=== PATIENT | female | born 1980 | race Caucasian/White ===

== ENCOUNTER 2024-05-29 08:24 | Outpatient (OUT) | payer OTHER, SELFPAY ==
[2024-05-29 08:38] LABS: Basophils Absolute Auto 0.1 10^3/uL (0.0-0.1); Eosinophils Absolute Auto 0.2 10^3/uL (0.0-0.7); Eosinophils Percent Auto 2.6 % (0.9-7.0); Hematocrit 39.8 % (36.0-48.0); Hemoglobin 12.9 g/dL (12.0-16.0); Immature Granulocytes Abs Auto 0.01 10^3/uL (0.00-0.03); Immature Granulocytes Pct Auto 0.2 % (0.0-0.5); Lymphocytes Absolute Auto 1.8 10^3/uL (1.2-3.8); Mean Corpuscular HGB Conc 32.4 g/dL (29.9-35.2); Mean Corpuscular Hemoglobin 29.4 pg (26.7-34.0); Mean Corpuscular Volume 90.7 fL (81.0-99.0); Mean Platelet Volume 10.7 fL (9.5-13.5); Monocytes Absolute Auto 0.6 10^3/uL (0.3-0.8); Neutrophils Absolute Auto 3.4 10^3/uL (1.4-6.5); Neutrophils Percent Auto 56.2 % (43.0-75.0); Platelet Count 190 10^3/uL (150-450); Red Blood Count 4.39 10^6/uL (4.20-5.40); Red Cell Distribution Width 12.2 % (11.0-15.0); White Blood Count 6.1 10^3/uL (4.0-11.0)
--- NOTE | 2024-05-29 08:40 | XR_ITS ---
The [address] [address] Patient Name: NATACHA BENITEZ MRN: [id number] date: 1980 Sex: F Assigned Patient Location: LAB Current Patient Location: Accession/Order Number: [id number] Exam Date: 05/29/2024 08:41 Report Date: 05/31/2024 06:39 At the request of: TIMOTEO REAGAN Procedure: XR lumbar spine 6V w bending EXAMINATION: XR lumbar spine 6V w bending HISTORY: M79.2 Peripheral neuropathic pain COMPARISON: MRI L-spine 02/14/2021 FINDINGS: BONES: Mild right convex curvature lumbar spine. No fracture, spondylolisthesis, bone lesion. Mild degenerative facet arthropathy L3-L4 through L5-S1. DISC SPACES: Mild narrowing L1-L2, L2-L3, L3-L4. PARASPINOUS: Negative. No paraspinous abnormality is seen. OTHER: Negative. XR/XR lumbar spine 6V w bending IMPRESSION: 1. Mild degenerative changes of lumbar spine; slight progression is suspected when compared to prior study (allowing for differences in technique). Electronically authenticated by: CASSIA PARKS Date: 05/31/2024 06:39
[2024-05-29 09:24] LABS: Alanine Aminotransferase 28 U/L (14-59); Albumin Level 3.5 g/dL (3.4-5.0); Alkaline Phosphatase 80 U/L (46-116); Anion Gap 12.7; Aspartate Amino Transferase 23 U/L (15-37); BUN Creatinine Ratio 13.5; Bilirubin Total 0.5 mg/dL (0.2-1.0); Calcium 8.6 mg/dL (8.5-10.1); Carbon Dioxide 29.6 mmol/L (21.0-32.0); Chloride 104 mmol/L (98-107); Chol HDL Ratio 2.2; Cholesterol 142 mg/dL (<=200); Estimated GFR (African America >60 (>=60 mL/min/1.73m^2); Estimated GFR (Non-African Ame 54 (>=60 mL/min/1.73m^2); Globulin 3.4 g/dL; Glucose 83 mg/dL (74-106); HDL Cholesterol 65 mg/dL (40-60); Potassium 4.3 mmol/L (3.5-5.1); Sodium 142 mmol/L (136-145); Total Protein 6.9 g/dL (6.4-8.2); Triglycerides 55 mg/dL (<=150)
== END 2024-05-29 08:25 | disposition home or self-care (01) ==
LOC: LAB 08:24
PROVIDERS: PCP Nurse Practitioner Family; Visit Provider Nurse Practitioner Family
DX: M79.2 Neuralgia and neuritis, unspecified (principal); I10 Essential (primary) hypertension; M51.369 Other intervertebral disc degeneration, lumbar region without mention of lumbar back pain or lower extremity pain
CPT/HCPCS: 36415; 72114; 80053; 80061; 85025

== ENCOUNTER 2024-06-17 13:45 | Outpatient (OUT) | payer OTHER, SELFPAY ==
--- OUTSIDE RECORDS SUMMARY | 2024-06-17 14:03 | XMS_ITS | CCD ---
Author Organization [facility] Team Providers Care High Climber Name Role Phone ESTER SANDERS Unavailable Unavailable KATERINA ANAND [facility], PCP Unavailabl e Unavailable TERESA, TARAH Admitting Unavailable TERESA, TARAH Attending Unavailable TERESA, TARAH Primary Care Unavailable TERESA, TARAH Consulting Unavailable TERESA, TARAH Admitting Unavailable TERESA, TARAH Attending Unavailable TERESA, TARAH Primary Care Unavailable TERESA, TARAH Consulting Unavailable TERESA, TARAH Admitting Unavailable TERESA, TARAH Attending Unavailable TERESA, TARAH Primary Care Unavailable KASEY, DR WILLIAM Chand Consulting Unavailable TERESA, TARAH Consulting Unavailable ZUMBAR, MIKI Admitting Unavailable ZUMBAR, MIKI Attending Unavailable TERESA, TARAH Primary Care Unavailable [facility] Primary Care Unavailbereket NELSON, DR VERDUZCO Admitting Unavailable OMAR, DR VERDUZCO Attending Unavailable ANDRIA BATRES Consulting Unavailable Jonah Son Consulting Unavailable GARCIA, EARNESTINE Admitting Unavailable GARCIA, EARNESTINE Attending Unavailable TERESA, TARAH Primary Care Unavailable KASEY, DR WILLIAM Chand Consulting Unavailable GARCIA, EARNESTINE Consulting Unavailable LASHA, Bryce Attending Unavailable Corrine Dunn Attending Unavailable JORGEAMBryce Referring Unavailable SALAM, Bryce Attending Unavailable SALAMBryce Attending Unavailable JORGEAMBryce Admitting Unavailable Christ Garcia Attending Unavailable Christ Garcia Primary Care Unavailable Christ Garcia Admitting Unavailable Christ Garcia Attending Unavailable Christ Garcia Admitting Unavailable JULIANNA Garcia Primary Care Provider JULIANNA Garcia Attending Provider [phone] GAMALIEL Rouse Attending Provider Unavailable Unavailable Unavailable Allergies Allergy Classification Reported Allergen(s) Allergy Type Date of Onset Reaction(s) Facility (3 sources) NSAIDS (Non-Steroidal Anti-Inflamma; Translations: [NSAIDS (Non-Steroidal Anti-Inflamma] Propensity to adverse reactions 08-20-19 18 Gastrointestinal Upset [facility] Repository (1 source) NSAIDs Drug allergy (disorder) [facility] Repository (1 source) Ibuprofen; Translations: [ibuprofen] Drug Allergy [facility] Repository Medications Current Medications Medication Drug Class(es) Dates Sig (Normalized) Sig (Original) amLODIPine 5 mg oral tablet (2 sources) Dihydropyridine Calcium Channel Hao Start: 03-28-2017 take 1 tablet by mouth once daily Amlodipine Active 1 TAB PO Daily March 28, 2017 2:40pm carvedilol 25 mg oral tablet (2 sources) alpha-Adrenergic Hao, beta-Adrenergic Hao Start: 01-20-2018 take 25 mg by mouth twice daily Carvedilol Active 25 MG PO Twice daily January 20, 2018 1:43pm losartan potassium 25 mg oral tablet (2 sources) Angiotensin 2 Receptor Hao Start: 06-08-2018 take 25 mg by mouth twice daily Losartan Active 25 MG PO Twice daily June 08, 2018 3:13am 24 hr oxybutynin chloride 15 mg extended release oral tablet (2 sources) Cholinergic Muscarinic Antagonist Start: 03-10-2017 take 1 tablet by mouth once daily Oxybutynin Chloride Active 1 TAB PO Daily March 10, 2017 3:10pm SUMAtriptan 100 mg oral tablet (2 sources) Serotonin-1b and Serotonin-1d Receptor Agonist Start: 01-20-2018 Sumatriptan Succinate (Imitrex) 100 mg Tablet Active 100 MG PO As Directed January 20, 2018 1:43pm Completed/Discontinued Medications Medication Drug Class(es) Dates Sig (Normalized) Sig (Original) acetaminophen 325 mg / HYDROcodone bitartrate 5 mg oral tablet (2 sources) Opioid Agonist Start: 06-08-2018 End: 06-11-2018 take 1 tablet by mouth every six hours Hydrocodone-Acetam inophen (Acton) 5-325 mg tablet Discontinued 1 TAB PO Q6H 10 3 June 08, 2018 June 11, 2018 1:02am acetaminophen 325 mg / oxyCODONE hydrochloride 5 mg oral tablet (2 sources) Opioid Agonist Start: 04-04-2017 End: 01-20-2018 take 1 tablet by mouth every four hours Oxycodone-Acetamin ophen (Percocet) 5-325 mg tablet Discontinued 1 TAB PO Q4H 30 April 04, 2017 January 20, 2018 2:45pm ferrous sulfate 325 mg oral tablet (2 sources) Start: 03-10-2017 End: 01-20-2018 take 1 tablet by mouth once daily Ferrous Sulfate Discontinued 1 TAB PO Daily March 10, 2017 3:10pm January 20, 2018 1:42pm gabapentin 300 mg oral capsule (2 sources) Anti-epileptic Agent Start: 03-10-2017 End: 01-20-2018 take 3 capsules by mouth at bedtime Gabapentin Discontinued 3 CAP PO Bedtime March 10, 2017 3:08pm January 20, 2018 1:45pm griseofulvin 500 mg oral tablet (2 sources) Start: 03-10-2017 End: 03-28-2017 take 1 tablet by mouth once daily Griseofulvin Microsize Discontinued 1 TAB PO Daily March 10, 2017 3:09pm March 28, 2017 2:40pm ketoconazole 20 mg/ml topical cream (2 sources) Azole Antifungal Start: 03-28-2017 End: 01-20-2018 Ketoconazole Discontinued 1 APPLIC TOPICAL As Directed March 28, 2017 2:34pm January 20, 2018 1:45pm nortriptyline 10 mg oral capsule (2 sources) Tricyclic Antidepressant Start: 01-20-2018 End: 06-08-2018 take 3 tablets by mouth once daily at bedtime Nortriptyline Discontinued 3 TAB PO Daily at bedtime January 20, 2018 1:43pm June 08, 2018 3:13am valsartan 80 mg oral tablet (2 sources) Angiotensin 2 Receptor Hao Start: 01-20-2018 End: 06-08-2018 take 80 mg by mouth once daily Valsartan Discontinued 80 MG PO Daily January 20, 2018 1:43pm June 08, 2018 3:13am Problems Active Problems Problem Classification Problem Date Documented Da te Episodic/Chronic Esophageal disorders (1 source) Gastro-esophageal reflux disease without esophagitis; Translations: [GERD WITHOUT ESOPHAGITIS] Onset: 09-14-2020 Chronic Essential hypertension (2 sources) Essential (primary) hypertension; Translations: [Essential (primary) hypertension] Onset: 11-05-2017 Chronic Essential hypertension (2 sources) Essential hypertension Onset: 11-05-2017 Headache; including migraine (1 source) Migraine 03-10-2017 Chronic Other lower respiratory disease (1 source) Cough; Translations: [COUGH] Onset: 03-30-2021 Episodic Other lower respiratory disease (1 source) Other forms of dyspnea; Translations: [OTHER FORMS OF DYSPNEA] Onset: 01-02-2021 Episodic Other screening for suspected conditions (not mental disorders or infectious disease) (4 sources) Encounter for screening mammogram for malignant neoplasm of breast; Translations: [ENC SCR MAMMO MALIG NEOPLASM BREAST] Onset: 12-28-2020 Episodic Pulmonary heart disease (1 source) Personal history of pulmonary embolism; Translations: [PERSONAL HISTORY PULMONARY EMBOLISM] Onset: 01-02-2021 Episodic Residual codes; unclassified (1 source) Family history of malignant neoplasm of breast; Translations: [FAMILY HX MALIG NEOPLASM OF BREAST] Onset: 01-02-2021 Episodic Spondylosis; intervertebral disc disorders; other back problems (12 sources) Radiculopathy, lumbar region; Translations: [Radiculopathy, lumbosacral region] Onset: 09-12-2020 Episodic Unclassified (1 source) Dyspnea, unspecified / R06.00(ICD-9) Onset: 11-05-2017 Unclassified (1 source) Cardiac arrhythmia, unspecified / I49.9(ICD-9) Onset: 11-05-2017 Unclassified (1 source) Obesity, unspecified / E66.9(ICD-9) Onset: 11-05-2017 Unclassified (3 sources) CONTACT W/AND (SUSP) EXPOS COVID-19; Translations: [CONTACT W/AND (SUSP) EXPOS COVID-19] Onset: 03-30-2021 Unclassified (1 source) Encounter for screening mammogram for malignant neoplasm of breast; Translations: [Encounter for screening mammogram for malignant neoplasm of breast] Onset: 12-12-2022 Unclassified (1 source) I10 - Essential (primary) hypertension; Translations: [I10 - Essential (primary) hypertension] Onset: 12-27-2021 Past or Other Problems Problem Classification Problem Date Documented Da te Episodic/Chronic Calculus of urinary tract (1 source) Personal history of urinary calculi; Translations: [PERSONAL HISTORY OF URINARY CALCULI] Onset: 09-14-2020 Episodic Residual codes; unclassified (1 source) Acquired absence of other specified parts of digestive tract; Translations: [ACQ ABSENCE OTH PART DIGESTV TRACT] Onset: 09-14-2020 Episodic Unclassified (1 source) CONTACT W/AND (SUSP) EXPOS COVID-19; Translations: [CONTACT W/AND (SUSP) EXPOS COVID-19] Onset: 03-27-2021 Results Test Name Value Interpretation Reference Range Facility Alanine aminotransferase [En zymatic activity/volume] in Serum or PlasmaOrdered By: April Rouse on 01-24-2023 ALT [Catalytic activity/Vol] 16 U/L 7-52 [facility] Albumin [Mass/volume] in Ser um or Plasma by Bromocresol green (BCG) dye binding methoOrdered By: April Rouse on 01-24-2023 Albumin BCG dye [Mass/Vol] 4.2 g/dL 3.5-5.7 [facility] Alkaline phosphatase [Enzyma tic activity/volume] in Serum or PlasmaOrdered By: April Rouse on 01-24-2023 ALP [Catalytic activity/Vol] 72 U/L 34-104 [facility] Aspartate aminotransferase [ Enzymatic activity/volume] in Serum or PlasmaOrdered By: April Rouse on 01-24-2023 AST [Catalytic activity/Vol] 20 U/L 13-39 [facility] Basophils Auto (Bld) [#/Vol] Ordered By: April Rouse on 01-24-2023 Basophils (Bld) [#/Vol] 0.0 10*3/uL 0.0-0.2 [facility] Basophils/100 WBC Auto (Bld) Ordered By: April Rouse on 01-24-2023 Basophils/100 WBC (Bld) 0.5 % . [facility] Bilirubin.total [Mass/volume ] in Serum or PlasmaOrdered By: April Rouse on 01-24-2023 Bilirubin [Mass/Vol] 0.5 mg/dL 0.3-1.0 [facility] Calcium [Mass/volume] in Ser um or PlasmaOrdered By: April Rouse on 01-24-2023 Calcium [Mass/Vol] 8.9 mg/dL 8.6-10.3 [facility] Carbon dioxide, total [Moles /volume] in Serum or PlasmaOrdered By: April Rouse on 01-24-2023 CO2 [Moles/Vol] 30.4 mmol/L 21.0-31.0 [facility] Chloride [Moles/volume] in S gamaliel or PlasmaOrdered By: April Rouse on 01-24-2023 Chloride [Moles/Vol] 105 mmol/L 98-107 [facility] Cholesterol [Mass/volume] in Serum or PlasmaOrdered By: April Rouse on 01-24-2023 Cholesterol [Mass/Vol] 137 mg/dL 140-200 [facility] Comment on above: Chol less than 200 m g/dl low riskChol 201-239 mg/dl borderline riskChol 240 mg/dl and greater high risk Cholesterol in LDL Calc [Mas s/Vol]Ordered By: April Rouse on 01-24-2023 Cholesterol in LDL [Mass/Vol] 69 mg/dL 0-100 [facility] Comment on above: LDL ATP III CLASSIFI CATIONLDL less than 100 mg/dL OptimalLDL 100-129 mg/dL Near or above optimalLDL 130-159 mg/dL Borderline highLDL 160-189 mg/dL HighLDL greater than 189 mg/dL Very high Cholesterol in VLDL Calc [Ma ss/Vol]Ordered By: April Rouse on 01-24-2023 Cholesterol in VLDL [Mass/Vol] 21 mg/dL [facility] Creatinine [Mass/volume] in Serum or PlasmaOrdered By: April Rouse on 01-24-2023 Creatinine [Mass/Vol] 0.89 mg/dL 0.60-1.20 [facility] Eosinophils Auto (Bld) [#/Vo l]Ordered By: April Rouse on 01-24-2023 Eosinophils (Bld) [#/Vol] 0.1 10*3/uL 0.0-0.45 [facility] Eosinophils/100 WBC Auto (Bl d)Ordered By: April Rouse on 01-24-2023 Eosinophils/100 WBC (Bld) 2.2 % . [facility] Erythrocyte distribution wid th Auto (RBC) [Ratio]Ordered By: April Rouse on 01-24-2023 Erythrocyte distribution width (RBC) [Ratio] 13.1 % 11.9-15.3 [facility] Globulin Calc (S) [Mass/Vol] Ordered By: April Rouse on 01-24-2023 Globulin (S) [Mass/Vol] 2.7 g/dL [facility] Glucose [Mass/volume] in Ser um or PlasmaOrdered By: April Rouse on 01-24-2023 Glucose [Mass/Vol] 82 mg/dL 70-100 [facility] Comment on above: ADA recommended refe rence rangeRandom Glucose Reference Range is dependent on time and content of last meal. Glucose of more than 200 mg/dL in a nonstressed, ambulatory subject supports the diagnosis of Diabetes Mellitus. Hematocrit Auto (Bld) [Volum e fraction]Ordered By: April Rouse on 01-24-2023 Hematocrit (Bld) [Volume fraction] 38.0 % 34.0-46.4 [facility] Hemoglobin [Mass/volume] in BloodOrdered By: April Rouse on 01-24-2023 Hemoglobin (Bld) [Mass/Vol] 12.7 g/dL 11.8-15.4 [facility] Leukocytes [#/volume] correc kamilah for nucleated erythrocytes in Blood by Automated counOrdered By: April Rouse on 01-24-2023 WBC corrected for nucl RBC Auto (Bld) [#/Vol] 5.8 10*3/uL 3.8-11.6 [facility] Lymphocytes Auto (Bld) [#/Vo l]Ordered By: April Rouse on 01-24-2023 Lymphocytes (Bld) [#/Vol] 1.7 10*3/uL 1.00-4.8 [facility] Lymphocytes/100 WBC Auto (Bl d)Ordered By: April Rouse on 01-24-2023 Lymphocytes/100 WBC (Bld) 29.9 % . [facility] MCH Auto (RBC) [Entitic mass ]Ordered By: April Rouse on 01-24-2023 MCH (RBC) [Entitic mass] 29.3 pg 24.7-34.3 [facility] MCHC Auto (RBC) [Mass/Vol]Or dered By: April Rouse on 01-24-2023 MCHC (RBC) [Mass/Vol] 33.3 g/dL 32.0-35.0 [facility] MCV Auto (RBC) [Entitic vol] Ordered By: April Rouse on 01-24-2023 MCV (RBC) [Entitic vol] 88.0 fL 80-100 [facility] Monocytes Auto (Bld) [#/Vol] Ordered By: April Rouse on 01-24-2023 Monocytes (Bld) [#/Vol] 0.5 10*3/uL 0.0-0.8 [facility] Monocytes/100 WBC Auto (Bld) Ordered By: April Rouse on 01-24-2023 Monocytes/100 WBC (Bld) 8.0 % . [facility] Neutrophils Auto (Bld) [#/Vo l]Ordered By: April Rouse on 01-24-2023 Neutrophils (Bld) [#/Vol] 3.4 10*3/uL 1.8-7.7 [facility] Neutrophils/100 WBC Auto (Bl d)Ordered By: April Rouse on 01-24-2023 Neutrophils/100 WBC (Bld) 59.4 % . [facility] No Panel InformationOrdered By: April Rouse on 01-24-2023 Estimated GFR (CKD-EPI) > 60.0 mL/Min [facility] Creatinine Clearance (Chem N/A [facility] Nucleated erythrocytes [Pres ence] in Blood by Automated countOrdered By: April Rouse on 01-24-2023 Nucleated RBC Auto Ql (Bld) 0.2 /100{WBC} 0-0.5 [facility] Platelet adequacy [Presence] in Blood by Light microscopyOrdered By: April Rouse on 01-24-2023 Platelets LM Ql (Bld) Normal Normal [facility] Platelet mean volume Auto (B ld) [Entitic vol]Ordered By: April Rouse on 01-24-2023 Platelet mean volume (Bld) [Entitic vol] 9.8 fL 6.3-10.7 [facility] Platelet morphology finding [Identifier] in BloodOrdered By: April Rouse on 01-24-2023 Platelet morphology finding Nom (Bld) Normal Normal [facility] Platelets Auto (Bld) [#/Vol] Ordered By: April Rouse on 01-24-2023 Platelets (Bld) [#/Vol] 178 10*3/uL 150-450 [facility] Potassium [Moles/volume] in Serum or PlasmaOrdered By: April Rouse on 01-24-2023 Potassium [Moles/Vol] 4.0 mmol/L 3.5-5.1 [facility] Protein [Mass/volume] in Ser um or PlasmaOrdered By: April Rouse on 01-24-2023 Protein [Mass/Vol] 6.9 g/dL 6.4-8.9 [facility] RBC Auto (Bld) [#/Vol]Ordere d By: April Rouse on 01-24-2023 RBC (Bld) [#/Vol] 4.32 10*6/uL 3.60-5.00 [facility] RBC morphologyOrdered By: Anoop Rouse on 01-24-2023 RBC morphology finding Nom (Bld) Normal Normal [facility] Serum or plasma albumin/glob ulin mass ratioOrdered By: April Rouse on 01-24-2023 Albumin/Globulin [Mass ratio] 1.6 {ratio} [facility] Serum or plasma anion gap de terminationOrdered By: April Rouse on 01-24-2023 Anion gap [Moles/Vol] 8.6 mmol/L 6.0-15.0 [facility] Serum or plasma high density lipoprotein (HDL) cholesterol measurementOrdered By: April Rouse on 01-24-2023 Cholesterol in HDL [Mass/Vol] 47 mg/dL 23-92 [facility] Comment on above: HDL CHOL ATP-III CLA SSIFICATION Cardiovascular RiskHDL > or equal to 60 mg/dL LOWHDL < 40 mg/dL HIGH Serum or plasma total choles terol/high density lipoprotein (HDL) cholesterol mass ratOrdered By: April Rouse on 01-24-2023 Cholesterol.total/Chol esterol in HDL [Mass ratio] 2.9 {ratio} <5.0 [facility] Sodium [Moles/volume] in Ser um or PlasmaOrdered By: April Rouse on 01-24-2023 Sodium [Moles/Vol] 140 mmol/L 136-145 [facility] Triglyceride [Mass/volume] i n Serum or PlasmaOrdered By: April Rouse on 01-24-2023 Triglyceride [Mass/Vol] 106 mg/dL 0-149 [facility] Comment on above: TRIG ATP III CLASSIF ICATIONTRIG less than 150 mg/dL NormalTRIG 150-199 mg/dL Borderline highTRIG 200-500 mg/dL High TRIG greater than 500 mg/dL Very highStandard traceable to the Center for Disease Conrtrol and Prevention (CDC) test method. Urea nitrogen [Mass/volume] in Serum or PlasmaOrdered By: April Rouse on 01-24-2023 Urea nitrogen [Mass/Vol] 20 mg/dL 7-25 [facility] WBC Auto (Bld) [#/Vol]Ordere d By: April Rouse on 01-24-2023 WBC (Bld) [#/Vol] 5.8 10*3/uL 3.8-11.6 [facility] MM screening mammo BI w/CADo n 12-12-2022 MM screening mammo BI w/CAD [facility] [place] [address] [place] [address] Mammography Report Signed Patient: Natacha Benitez MR#: [id number] : 1980 Acct:[id number] Age/Sex: 42 / F ADM Date: 12/12/22 Loc: [place] Room: Type: [facility] Attending Dr: Christ LEVINE Copies to: JULIANNA Blackburn Ordering Provider: JULIANNA Blackburn Date of Service: 12/12/22 MM/MM screening mammo BI w/CAD: Breast cancer screening by mammogram CLINICAL DATA: Screening for malignancy. BILATERAL SCREENING MAMMOGRAMS - FULL FIELD DIGITAL WITH TOMOSYNTHESIS AND CAD Routine and tomosynthesis craniocaudal and mediolateral oblique views of both breasts were obtained using low-dose digital technique. Comparison is made to the prior study from December 28, 2020. This examination was reviewed with the aid of CAD. There are scattered fibroglandular densities. There are no developing masses, typically malignant calcifications or architectural distortion. There has been no significant interval change. MM/MM screening mammo BI w/CAD IMPRESSION: NO MAMMOGRAPHIC EVIDENCE OF MALIGNANCY. ROUTINE FOLLOW-UP IS RECOMMENDED IN ONE YEAR. RESULT CODE: 1 Negative DENSITY CODE: 2 (approximately 25-50% glandular) FOLLOW UP: 1YR The false-negative rate of mammography is approximately 10-percent. Management of a palpable abnormality must be based on clinical grounds. Patient was entered into a reminder system with a target due date for the next mammogram. Impression dictated by: Azalea Maciel M.D.12/12/2022 2:19 PM Dictation Location: S01 Transcribed By: ALINA 12/12/22 1419 Dictated By: Azalea Maciel MD 12/12/22 1417 Signed By: 12/12/22 1419 [facility] Pre-Certification Formon Pre-Certification Form [id number] [facility] Ambulatory Visit Summaryon 0 09-19-2022 Ambulatory Visit Summary NATACHA BENITEZ :1980 Visit Date:09/19/2022 Ambulatory Visit Instructions Your Diagnosis H. pylori infection Bloating Nausea Dry heaves Your Care Team Attending Physician - Corrine Dunn CNP Primary Care Physician - NONE, XXXX This Is Your Medications List bismuth subsalicylate (bismuth subsalicylate 262 mg Chew Tab) metronidazole (Flagyl 250 mg Tab) pantoprazole (Pantoprazole [address] Tab) tetracycline (tetracycline 500 mg Cap) Contact prescribing physician if questions or concerns Non-Formulary Medication (Misc Medication) losartan naltrexone (naltrexone 50 mg oral tablet) naltrexone (naltrexone 50 mg oral tablet) pantoprazole (Pantoprazole [address] Tab) rimegepant (Nurtec ODT 75 mg oral tablet, disintegrating) sumatriptan (Imitrex 100 mg Tab) Procedures Performed EGD - Esophagogastroduodenoscopy (08/20/2022), Introduction of tension free vaginal tape (04/08/2019), Cystourethroscopy with dilation of urethral stricture (03/23/2019), Botox injection (12/03/2018), botox injections (04/16/2018), Botox Injection (11/05/2017), Tooth extraction (08/22/2017), Botox injections (06/12/2017), Cystourethroscopy with dilation of urethral stricture (02/25/2017), Cystoscopic removal of ureteric stent (07/11/2011), Cystoscopic insertion of ureteric stent (06/14/2011), bladder lift, Dilatation and curettage, Essure., Hx of cholecystectomy......, Hysterectomy, Lithotripsy. What to do next You Need to Schedule the Following Appointments Follow Up with Corrine Dunn CNP When: Within 3 months Where: Medications What How Much When Why Instructions New bismuth subsalicylate (bismuth subsalicylate 262 mg Chew Tab) 2 Tablets Chewed 4 times a day H. pylori infection Duration: 14 Days Pickup at [facility]/pharmacy #[id number] New metronidazole (Flagyl 250 mg Tab) 1 Tablets By Mouth Every 6 hours H. pylori infection Duration: 14 Days Pickup at [facility]/pharmacy #[id number] New pantoprazole (Pantoprazole [address] Tab) 1 Tablets By Mouth 2 times a day H. pylori infection Duration: 14 Days Pickup at [facility]/pharmacy #[id number] New tetracycline (tetracycline 500 mg Cap) 1 Capsules By Mouth Every 6 hours H. pylori infection Duration: 14 Days Pickup at [facility]/pharmacy #[id number] Unchanged losartan 25 Milligram By Mouth Every day Contact prescribing physician if questions or concerns Unchanged naltrexone (naltrexone 50 mg oral tablet) Contact prescribing physician if questions or concerns Unchanged naltrexone (naltrexone 50 mg oral tablet) Contact prescribing physician if questions or concerns Unchanged Non-Formulary Medication (Misc Medication) Contact prescribing physician if questions or concerns Unchanged pantoprazole (Pantoprazole [address] Tab) TAKE 1 TABLET BY MOUTH EVERY DAY Contact prescribing physician if questions or concerns Unchanged rimegepant (Nurtec ODT 75 mg oral tablet, disintegrating) DISSOLVE 1 TABLET ON THE TONGUE ONCE DAILY Contact prescribing physician if questions or concerns Unchanged sumatriptan (Imitrex 100 mg Tab) 1 Tablets By Mouth Every day as needed for for migraine headache may repeat dose after 2 hours up to a maximum of 200 mg in 24 hours. Max 5 doses per week Contact prescribing physician if questions or concerns Pharmacy Information [facility]/pharmacy #[id number]: [address], [place] [id number] [phone] Medications and Immunizations Administered Not Given influenza virus vaccine, inactivated, Patient Refuses Allergies ibuprofen (Stomach upset) Problems Ongoing - Any problem that you are currently receiving treatment for. Bloating BMI 40.0-44.9, adult Chronic neck pain Dry heaves Globus syndrome H. pylori infection Hx of cholecystectomy Hx of migraine headaches Morbid obesity Nausea Nocturia Pulmonary embolism Seen by pain management service Straining to void Stress incontinence Stricture of female urethra Urinary urgency Urine frequency Historical - Any problem that you are no longer receiving treatment for. Dysphagia H/O: pulmonary embolus HTN (hypertension) Kidney stones Education Materials Antibiotic Medicine, Adult Antibiotic medicines are used to treat infections caused by bacteria, such as strep throat and urinary tract infection (UTI). Antibiotic medicines will not work for viral illnesses, such as colds or the flu (influenza). They work by killing the bacteria that is making you sick. Antibiotics can also have serious side effects. It is important that you take antibiotic medicines safely and only when needed. When do I need to take antibiotics? Antibiotics are medicines that treat bacterial infections. You may need antibiotics for: ? UTI. ? Strep throat. ? Meningitis. This infection affects the spinal cord and brain. ? Bacterial sinusitis. ? Serious lung infection. You may start antibiotics while your health care provider waits for test results to come back. Common tests may includ (more content not included)... Normal [facility] Consent for Procedure/Surger yon 09-19-2022 Consent for Procedure/Surgery [id number]#[id number]:[address] [facility] Gastro Video Visit - Telehea lthon 09-19-2022 Gastro Video Visit - Telehealth Chief Complaint EGD results HPI Staff Patient is a 42 year old female on a video visit to review EGD results. I spoke to patient yesterday in regards to celiac panel that has not been completed. Patient states that she will have labs drawn. History of Present Illness Patient is a 47-year-old female who presents for virtual video visit for follow-up from EGD completed 08/20/[address] Livingston. Patient was previously evaluated by Dr. Livingston 07/24/2022 for dry heaving, bloating and globus syndrome. Note also indicated patient with nausea. EGD completed 08/20/2022 revealed normal esophagus, normal gastric mucosa, normal duodenum, distal esophagus biopsies within normal limits, proximal esophagus biopsy revealed small intestinal mucosa?contamination suspected per pathology report, negative for dysplasia, duodenal biopsy within normal limits, stomach biopsy revealed marked chronic active H. pylori gastritis, negative for intestinal metaplasia. During today's visit, patient reports she will experience bloating and nausea off/on if she does not eat over the last year. She also reports having episodes of dry heaving that occurs if she does not eat over the last year. Denies black/bloody stools, vomiting, fevers/chills, diarrhea. Denies having any other GI complaints. Review of Systems ROS - Provider Constitutional: no fever, no chills. Skin: no Jaundice. ENMT: Denies dysphagia and heartburn. Respiratory: no shortness of breath. Cardiovascular: no chest pain. Gastrointestinal: yes nausea, no vomiting, no diarrhea, no GI bleeding. Physical Exam Physical exam completed via telemedicine virtual video visit: General: well developed, well groomed, well nourished, in no acute distress. Mental status: alert and oriented x 3. Unable to obtain vital signs or complete full physical examination in relation to virtual video visit and COVID-19 pandemic. Assessment/Plan This visit was conducted via two-way, real-time interactive video communications from my office using [employer] due to the restrictions of the COVID-19 pandemic. No physical exam was conducted other than those areas of the body visible to telecommunications with the patient located at [place] [phone], with no one else in attendance. If it is determined that the patient should be evaluated in the clinic, the patient will be directed to the appropriate clinic or venue. The patient or their guardian verbally consented to this visit. Total time spent preparing the chart, conducting the encounter with the patient and family, and time spent documenting, reviewing, and ordering tests was 20 minutes. 1. H. pylori infection (A04.8: Other specified bacterial intestinal infections) EGD completed 08/20/2022 revealed normal esophagus, normal gastric mucosa, normal duodenum, distal esophagus biopsies within normal limits, proximal esophagus biopsy revealed small intestinal mucosa?contamination suspected per pathology report, negative for dysplasia, duodenal biopsy within normal limits, stomach biopsy revealed marked chronic active H. pylori gastritis, negative for intestinal metaplasia. Ordered treatment for positive H. pylori with pantoprazole 40mg oral BID x 14 days, bismuth subsalicylate 524mg oral QID x 14 days, Tetracycline 500 mg oral QID x 14 days, and Metronidazole 250mg oral QID x 14 days. Educated to resume pantoprazole 40mg every other day as she is currently taking after finishing treatment for H. pylori. Educated to refrain from use of ETOH while taking Metronidazole. Educated regarding diagnosis and plan of care regarding. Ordered repeat EGD in 2 months to evaluate for eradication of H. pylori and to further evaluate for small intestinal mucosa in esophagus. Ordered: bismuth subsalicylate, 524 mg, 2 tab(s), Chewed, QID for 14 day(s), 112 tab(s), Refill(s) 0, [facility]/pharmacy #[id number], 166.5, cm, 07/24/22 10:07:00 EST, Height/Length Dosing, 99.5, kg, 07/24/22 10:07:00 EST, Weight Dosing metronidazole, 250 mg = 1 tab(s), Oral, q6hr, X 14 day(s), # 56 tab(s), Refills(s) 0, Pharmacy: [facility]/pharmacy #[id number], 166.5, cm, 07/24/22 10:07:00 EST, Height/Length Dosing, 99.5, kg, 07/24/22 10:07:00 EST, Weight Dosing pantoprazole, 40 mg = 1 tab(s), Oral, BID, X 14 day(s), # 28 tab(s), Refills(s) 0, Pharmacy: [facility]/pharmacy #[id number], 166.5, cm, 07/24/22 10:07:00 EST, Height/Length Dosing, 99.5, kg, 07/24/22 10:07:00 EST, Weight Dosing tetracycline, 500 mg = 1 cap(s), Oral, q6hr, X 14 day(s), # 56 cap(s), Refills(s) 0, Pharmacy: [facility]/pharmacy #[id number], 166.5, cm, 07/24/22 10:07:00 EST, Height/Length Dosing, 99.5, kg, 07/24/22 10:07:00 EST, Weight Dosing EGD Endoscopy (Hospital Procedure) 2. Bloating (R14.0: Abdominal distension (gaseous)) Will experience bloating and nausea off/on if she does not eat over the last year. Potentially related to H. pylori infection- see above # 1. Will follow-up after treatment for H. pylori to evaluate for improvement in symptoms. 3. Nausea (R11.0: Nausea) Will experience (more content not included)... Normal [facility] Comment on above: Result Comment: Elec tronically Signed By: Corrine Dunn CNP\.guillermo\Date and Time Signed: 09/19/22 12:33 EDT Patient Educationon 09-20-19 Patient Education Pharmacology Antibiotic Medicine, Adult Antibiotic medicines are used to treat infections caused by bacteria, such as strep throat and urinary tract infection (UTI). Antibiotic medicines will not work for viral illnesses, such as colds or the flu (influenza). They work by killing the bacteria that is making you sick. Antibiotics can also have serious side effects. It is important that you take antibiotic medicines safely and only when needed. When do I need to take antibiotics? Antibiotics are medicines that treat bacterial infections. You may need antibiotics for: ? UTI. ? Strep throat. ? Meningitis. This infection affects the spinal cord and brain. ? Bacterial sinusitis. ? Serious lung infection. You may start antibiotics while your health care provider waits for test results to come back. Common tests may include throat, urine, blood, or mucus culture. Your health care provider may change or stop the antibiotic depending on your test results. When are antibiotics not needed? You do not need antibiotics for most common illnesses. These illnesses may be caused by a virus, not a bacteria. You do not need antibiotics for: ? The common cold. ? Influenza. ? Sore throat. ? Discolored mucus. ? Bronchitis. Antibiotics are not always needed for all bacterial infections. Many of these infections clear up without antibiotic treatment. Do not ask for or take antibiotics when they are not necessary. How long should I take the antibiotic? You must take the entire prescription. Continue to take your antibiotic for as long as told by your health care provider. Do not stop taking it even if you start to feel better. If you stop taking it too soon: ? You may start to feel sick again. ? Your infection may become harder to treat. ? Complications may develop. Each course of antibiotics needs a different amount of time to work. Some antibiotic courses last only a few days. Some last about a week to 10 days. In some cases, you may need to take antibiotics for a few weeks to completely treat the infection. What if I miss a dose? Try not to miss any doses of medicine. If you miss a dose, call your health care provider or pharmacist for advice. Sometimes it is okay to take the missed dose as soon as possible. What are the risks of taking antibiotics? Most antibiotics can cause an infection called Clostridioides difficile (C. difficile or C. diff), which causes severe diarrhea. This infection happens when the antibiotics kill the healthy bacteria in your intestines. This allows C. diff to grow. The infection needs to be treated right away. Let your health care provider know if: ? You have diarrhea while taking an antibiotic. ? You have diarrhea after you stop taking an antibiotic. C. diff infection can start weeks after stopping the antibiotic. Taking an antibiotic also puts you at risk for getting a bacteria that does not respond to medicine (antibiotic-resistant infection) in the future. Antibiotics can cause bacteria to change so that if the antibiotic is taken again, the medicine is not able to kill the bacteria. These infections can be more serious and, in some cases, life-threatening. Do antibiotics affect control? control pills may not work while you are on antibiotics. If you are taking control pills, continue taking them as usual and use a second form of control, such as a condom, to avoid unwanted . Continue using the second form of control until your health care provider says you can stop. What else should I know about taking antibiotics? It is important for you to take antibiotics exactly as told. Make sure that you: ? Take the entire course of antibiotic that was prescribed. Do not stop taking your antibiotics even if your symptoms improve. ? Take the correct amount of medicine each day. ? Ask your health care provider: ? How long to wait in between doses. ? If the antibiotic should be taken with food. ? If there are any foods, drinks, or medicines that you should avoid while taking the antibiotics. ? If there are any side effects you should be aware of. ? Only use the antibiotics prescribed for you by your health care provider. Do not use antibiotics prescribed for someone else. ? Drink a large glass of water along with the antibiotics. ? Ask the pharmacist for a syringe, cup, or spoon that properly measures the antibiotics. ? Throw away any leftover medicine. Contact a health care provider if: ? Your symptoms get worse. ? You have new joint pain or muscle aches that begin after starting the antibiotic. When should I seek immediate medical care? ? You have signs of a serious allergic reaction to antibiotics. If you have signs of a severe allergic reaction, stop taking the antibiotic right away. Signs may include: ? Hives, which are raised, itchy, red bumps on the skin. ? Skin rash. ? Trouble breathi (more content not included)... Normal [facility] Operative Reporton Operative Report [id number]#[id number]:[address] [facility] Coding Summary.on 08-27-2022 Coding Summary. [id number] Gh0bWw+ PGhlYWQ+FX2BUXEaB46jlSGjmU9 LD9nWVC1KBTKXNFFDMA7WSD8fwF U4FTucN3RlhhDc PmoqhCGtBH21GSj1MDX5eCwtDFt feU3dtRGkE1r6QcAvEW69jZ45LP feSMJlLoA5QlMrznxwbNAt H1ncDqIcxTDyPcc+PHRhYmxlIHd vBJIbHPzgWVIqDpPseDauOL7tHa 9yZGVyLWNvbGxhcHNlOiBj b7xvBUZcPKofAT1abLuiD7NbqJL 2BRQje6s2Wv34iNY+HQKwMCH6yJ ejTZuuo666PlYrt7meGHU5 mESiXStgNWN4L33bt4C8ASDiZUD vZJL3lZL6cH1raJxqvmaeX2PosA QvRiB5SYO5bKUliJ8nxClb fvhmpY0gYsl+Z79AHC6KFWMJZY6 LXvs3I2PgBpkhaYX+QA01RVIsCT 16uUZrqIVrv6pscYc0XiAc KTQxCPM6iKnsMChvp6OaWNZcI82 unIXaf9I6BUDbvMhtjJBmKmAjhF M0lE7uHMceisddv8nbyukz Tufol5vkpi68zI10N24zTYnsJZB qPPT1LCNsZJPcyZjlcu9jvZ3qCp 8+AOhwl4ynj3eulQp5HyXm BKQfgzJuyUbjWNY6t9UcZj39A2S krUrwp2UtGdi4bn07nQIte0I9dX I3DRcpYYCcoE4bZEuhWdT6 FEKbLtHknH56yAHwCHqdNg9acVg cyEjlOP1oVHEjgsjiCWRnrV8pOU UfrVCpmIwvIA4kMZCrxkye f935VbDbXZZ1IJGdoVItQ9DnmH2 gCaHvQNWwDHZmM8BhbGMvMKfpR8 32AUuuGnE7PTRrxaCpE2Ez WGAqcLycBzE3m7R1Pi4To7Bkdwa wIZT2MCigGUSoNrVdUcWdKfL0C7 LbHgv5AGIyjUzfMM2oM4Iy VXEkzakrqzaodRI5CJLwKRBxlV7 3dIXuAKkuIv4ix0F3g357NECdIN RygS12Jb8atJuaPTAifFAS oU0sumebj5ydhiowOoNzOGSnZIv 8MOv6UMCavPzpYuMbSVW4IdG1II X9jLJftE7pwJglnslvpI2w Oyc+Y52jjV8fLLE5MHV3jejrHOP xnvXgVZ37WC05G4HnAqofgAMioN U+XWIoggJprLgrHY6oQdFd q1uhp5SqSKaxB6UgBOEwFAvwVcm 3PGDvBRE0wDX0hE2pAULfZCbqz1 A8gLY5M0KystHetv5nd2xg ELYuSKeqQ72cdWQws9P8KPNyfIW 3PMGtlGsaDwFkgS02Kgt+PGNvbG yoo3IkVyufq5riy4mkrEi2 YkBjTECmetUvzHzhTSU5m1GsVz6 1V91yRWbrQVMfGZOnUSGuSMQvpA cysc7ofE6sDa3+PGNvbCB3 vXO6uB9lDRGyZoL5XDeiO155ZcR vpQFrLmwvb2qmw6ttfFx6ClOoPX EhzpPskTqqCWU5p4SxWg49 C91qOBvlLZYxOPAmSNGjKIPjeZg kiz9ghO0hZl2+NT4cm2rpua67pR 48dHI+LLUmKZY4bFayXNvp ZSPylY5eSJpgFmE1QTYtVvZwgM4 8fVMaLKpkPu3kbKxprIqxZE6zAH Mbwwpur873TpIqc2keFETp bQQxNHdhSLJ6P98cp7E9NPFhWTK xECN4aPU1wF6gpHpxxxadmWJqaH smvkBgtDjeUDojEGsjM788 IHRvcDsnPlBhdGllbnQgTmFtZTo 8X2RyAzz0GZDkiIrlYU6bdHAoPC czXc4ktPolbBywAQ7tFMYx azeyg936UnUkf3tsRXFdeCLcUFg dJEB7M96ic2I9KQJoEMUtSLF1gD Z3dL5dsMaelhpfqSLaqUga gjApnEnpYMokDKhdK286GMTjaZu yDfYahlCuKCWckOL5WK12DN19sC Dsl6P8sTT4N4YyCFHvrlfe rxuaoFN8RDOmTEXjrB36Of6prFt vAc2zCLQtXXS1OTPddIMjG2OwhK 8sKaWrCDBmRWVkD0BbuPVk DCkkF064YYhyDzI3EZLmscFyZ7R fDCPrvUwePtX9a6U9Dj4CS2P9QL 92FY80fADkr4Y9iJJ8M6Ym WYGuixcwavhubQT1KIYkVMAygS0 0Lk8hwUciYz8nITMsAFB5EALckR DyS5EhvI0uRvWcUIKgGOVs F7AhwLMvOMxrJ934ASorAnF4IFN ilfBiU4FpSERrjSwtFkF2e1C8Bn 4EISc6FH28CD97eOMgd6G6 wAD3K0IiKHKepfvwvqbmzPD8OYM sDINvrX76Mc7goGxdFq0kYGFiOZ O5YBFcaQCdS6AosM1uUvOj SZLtDWUhJ1VzwSRoJYxbI394ENy lPiV1VPDeeeUuA3IjOQRpxAgpYn O8s3F1La0FVAKdQK60VIS4 uWR5CD52ZV91W5VqDtwrsDNavVX +PHRhYmxlIHdpZHRoPScxMDAlJy GijKfxDO9eXf3dTOBcLGSw jQchsPLnZiXym2gbHRLwIKtlZI4 deFlxR4YzaLA9VODvj3u8Wy25L3 2bB0HtzST+JWVaeVW8lGD7 nF1nCsOlCrB6BOhbR709NxSgjJI kXlecf2heb5klwRu4PzG0ZOTszm QceBaoHTW3n3AdUh02G59n IHdpZHRoPSIxNSUiIHZhbGlnbj0 neE6rDz6+ZLSdxFA8jLL5xQ5oGo TfTvX2FDtlA190RqMzeMHe Qgjwk1jxh3iacWl2SuSlWJYvejF ioUvwWHH3n7EsBh47P3ZrkZgav5 IqGrx5to79sVXwe5U8lUZ8 Q4RoZUVgiatltZRdbBfbIU2kTEE gquoiWMPrkG0yUKUsM9g9YdZhWy Z6JOrpW0RimeK4EQVmcTGp IZgqHNW1W44ix8T9PJTjRCQtFBT 3wPK3hA0loMahicxyeIFhhJymcz NwaYzhZThuZBpiK488ACWe jVxpGBKktB4hKSSqvASmrTxbTT4 gJJGsxsuzXt9BD2rTYSrBDpwnBm mED4aNBO23Q4KqVkt5YLSf kAyoWK1yhKHfMUdgMu9ltFmttWe dBV9gVNKhphqhZHKhnT6dQRUypY JdyQnwYO4cAHAlhjssf510 BbQiERR9FXGjfFItW6GpqY7uNuG iGLKhZIEzO6UvkXDmOAbkA225AK bzRhW2GYKcifHyE7NzFLFg iZlnZeO6h8G5Du3tOl6vDV9nRLp yYU07XA45hOOcb7P4tUL4U4JkII MqarxvgzfzuKJ7CQAbMBRv mH07xHElOEvxLz2gr7T8g965IVM pBJVzrH87Zt6kvHsrLUBgdFJBkF 8qglfce3qsujjjKeByGNTd CLo5CHw1YCFugFnhPiGoYKR4NpD 1IVQ4aSTzkC0anMfebmrxjZ8qKe c+SKKcRMVrijJ9D4DnQtr1 YVQqwDbbSG4xjCAtLOboVe0pbFc jqHssLW6uRPUfnpjeWYEewC8bYM BedTMmsTicJK2lEOGtfguy m768OhWdQXS4QZCjeMUpB9LkvC4 vLuNxDXQxMHOtA5AowXSoUVlyV5 15FTnwNqV8SMBepoDnP3Lr ITPjpPzaLdA3s6D3Oh1CFC2ydEL 2Y3VkWrz8SHCixJmtGV8xkEQsCH nhLe2iuVcdtPhaIQ6qZASw pehtNOJgxS2rFMKzzODsaRchJY1 kKYIodtvbg886AcUrVZI6PVXkoT NnA6XobI6pSsFvFLYrXYNj I0TvuIYhJRvzP388JMdbSiS5OHO xtyZjL1VbCWKobRiqQfT5f1O4Kq 4LJAXuSAPmoHMyFuD1V4Yj PjwvdHI+WE82WQBqNV61aJXmlYC jf5eylLr8IcHlWEEjUKQ7cZypKK yli6PtPMWvX93rlCJlh9C1 APUxdZqdvUSfEgLswMD0zI3rXJt kyywdo5hpwjaiEwuuo7zfjr28nT 41L77mQOeaISIlCZBkOUUt ZFYgbWkske9vkZ9lNs2+PGNvbCB 1aJS9xU8pXkNiDmF0LJupC666Cn NxeUToDmcyy5vfz5gleFa1 EmNnCYXqunMttHywKXK9o7FpWk4 1L09rGXixWGOuYDEjCQYkWZUeeO jjbe5ciL6pJq5+HI5ba5xx cd38wR15tKD+HMWiBGL6wQspZTn yDFUcbH1rPOmxApU4NVObLsFppT 03rXFoJZjmWx6hiWvwaQrv WL3cAQRxnpshx100BkXaj1joXAU qnSQrIDqwTSP9L65on2W7DIMnMS TaGYJ4kYJ0eG2jkEtpwprr sKLzbXcvnoBwdWmuLBrgPCvoZ09 7ZARsqYllHaJtrPOwH1vucvCXCB 1lOjwvdGQ+FQUeWDX0lAmm VQbmZKVmtQ2kTXFtB1k1LpDiHmR 4QEvtJ3BapbF4DRXpiUBbOMGyrB KTrH9bnlewq1tafpsdDtZi OHViDVl7AEr4PWGycTkzLaFsUOF 3SpK7GIP2yDPxxX1jnVxuvufktI 9wOyc+RklOOjwvdGQ+PHRk FMW7vJvoXEdiZZBriE1xHZBhP2s 7RzAhTcE1KYxsF0IebsA6MLZbhI ZzKRXwoFYWyP6gscmmf7kl prkwUpJyMELkGCz9VRx3GWKsaMd yYyOjYVV9DvK2TMH7zQMcjX3vzJ niutpimO6eVdk+TVJOOjwv dGQ+IAXnFAM8qUdtQGjnTUMnsJ8 mMUEfQ8a0QgHgNwK6AAebD2Ceyq O9DMFxaVVwDSRwqMGWkP2s lgrru3wcbphyRiHlVWAkJDb0VVg 8UTWrtVxfCdOnFDT5AlE6CMR5sL HvrX3yqDqpthovfY3fZmy+ SAL7OXM5TI45US09P4LfVxqhqNK ibGU+PHRhYmxlIHdpZHRoPScxMD UqOqDzwTwgKE1rOw0pBOTa LWNv (more content not included)... Normal [facility] Physician Orderon 08-20-2022 Physician Order [id number]#[id number]:[address] [facility] Gastroenterology Office/Clin ic Noteon 07-26-2022 Gastroenterology Office/Clinic Note Chief Complaint sick call - feeling of throwing up air. abdominal pain and bloating. feeling like there is something stuck in her throat. nausea. HPI Staff Patient is a 42 year old femalewho presents today for a sick call with c/o dry heaving and bloating. Previously saw Dr. Mckenzie. Omeprazole not working switched to Pantoprazole, and is still not working. Feels like shes puking up air . Feels like she has to have something in her stomach at all times. Feeling of abdominal distention. History of Present Illness Natacha Benitez is a 42-year-old white female who was referred to me for dry heaving, bloating, and heartburn. The patient reports that if she does not have something in her stomach, it feels like her stomach is going to explode. She states that it feels like a pill stuck in her throat. The patient reports that when she starts vomiting, she burps, but it is just air that comes out. She states that once it is released, it is better. The patient reports that she feels a burning sensation in her chest. She states that she was on omeprazole, but she was switched to pantoprazole, but it has not helped. The patient reports that she is still taking pantoprazole in the morning with food. She denies hematochezia, melena, diarrhea, constipation, or rectal bleeding. The patient reports that she is on naltrexone for weight loss, and she takes stool softeners. She had an EGD done by Dr. Villegas in 2018 for bloating and abdominal pain. It did show acute inflammation in the stomach. Biopsies were obtained and showed no bacteria. She had a colonoscopy in 2013, which showed poor prep and internal hemorrhoids. The patient reports that she does not have bleeding anymore. She denies anxiety or stress brings up her symptoms. The patient reports that she [place] [facility]. She states that she was told that her cholesterol was high, but that could have been because she was not fasting. The patient reports that she had her gallbladder removed. She states that she burps continuously. The patient reports that she does not have anxiety. Review of Systems PHQ Score Initial Depression Screen Score: 0 Constitutional: no fever, no chills, no sweats, no weakness Skin: no Jaundice, no rash, no lesions, no petechiae ENMT: no ear pain, no sore throat, no congestion, no hoarseness Respiratory: no shortness of breath, no cough, no orthopnea, no wheezing Cardiovascular: no chest pain, no palpitations, no edema Gastrointestinal: no vomiting, no diarrhea, no constipation, no GI bleeding, no abdominal pain, no heartburn. Positive for dysphagia, bloating, nausea, and globus sensation. Genitourinary: no dysuria, no hematuria, no discharge, no pain Musculoskeletal: no back pain, no trauma Neurologic: no numbness, no sleeping problems Additional ROS info: Except as noted in the above Review of Systems and in the History of Present Illness all other systems have been reviewed and are negative or noncontributory. Physical Exam Vitals & Measurements HR: 90(Peripheral) RR: 16 BP: 138/88 HT: 66 in HT: 166.5 cm WT: 99.5 kg WT: 218.9 lb BMI: 35.89 Constitutional: Appearance: well developed Skin: Inspection: no rashes, ulcers, icterus, or telangiectasias. Eyes: Conjunctivae/lids: normal conjunctivae and lids. ENMT: Hearing: within normal limits. Lips/Teeth/Gums: normal oral mucosa Neck: Neck: normal motion, central trachea Respiratory: Percussion: thorax normoresonant. Auscultation: normal breath sounds; no rubs, wheezes, rale or ronchi. Cardiovascular: Auscultation: normal rhythm, S1 and S2; no rubs, murmurs or gallop. Peripheral: no edema Gastrointestinal/Abdomen: Abdomen: normal consistency and bowel sounds; no tenderness or masses. Liver/Spleen: normal size and consistency, not palpable. Rectal: deferred Musculoskeletal: Gait/station: normal gait Assessment/Plan 1. 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 She had an EGD in 2018 at an outside facility that showed gastritis. She had a negative H. pylori. At this point, I will repeat her EGD to evaluate for esophageal inlet patch esophagitis and eosinophilic esophagitis. We will continue with pantoprazole 40 mg. She was advised to take it 30 minutes before breakfast on an empty stomach. 2. Bloating (R14.0: Abdominal distension (gaseous)) We will proceed with blood testing to rule out celiac disease. The patient was also advised to start daily probiotics mmet-pog-vvhsspb. 3. Nausea (R11.0: Nausea) She has no vomiting, no hematemesis, and no melena. We will proceed with an EGD. 4. Hx of cholecystectomy (Z90.49: Acquired absence of other specified parts of digestive tract) ATTESTATION: Documentation services were performed after patient or guardian consented to allow [employer] to record this visit. DENISSE vocational services specialist and provider r (more content not included)... Normal [facility] Comment on above: Result Comment: Elec tronically Signed By: Ramila Rendon\.br\Date and Time Signed: 07/24/22 11:27 EST\.br\Electronically Co-Signed By: Bryce LIVINGSTON MD\.br\Date and Time Co-Signed: 07/26/22 12:10 EST Transfer Inon 07-26-2022 Transfer In [id number]#[id number]:127 [facility] Transfer In [id number]#[id number]:127 [facility] Consent for Procedure/Surger yon 07-25-2022 Consent for Procedure/Surgery [id number]#[id number]:127 [facility] Ambulatory Visit Summaryon 0 07-24-2022 Ambulatory Visit Summary NATACHA BENITEZ :1980 Visit Date:07/24/2022 Ambulatory Visit Instructions Your Diagnosis Globus syndrome Bloating Nausea Hx of cholecystectomy Your Care Team Attending Physician - Bryce LIVINGSTON MD This Is Your Medications List Contact prescribing physician if questions or concerns Non-Formulary Medication (Misc Medication) losartan naltrexone (naltrexone 50 mg oral tablet) naltrexone (naltrexone 50 mg oral tablet) pantoprazole (Pantoprazole [address] Tab) rimegepant (Nurtec ODT 75 mg oral tablet, disintegrating) sumatriptan (Imitrex 100 mg Tab) Procedures Performed Introduction of tension free vaginal tape (04/08/2019), Cystourethroscopy with dilation of urethral stricture (03/23/2019), Botox injection (12/03/2018), botox injections (04/16/2018), Botox Injection (11/05/2017), Tooth extraction (08/22/2017), Botox injections (06/12/2017), Cystourethroscopy with dilation of urethral stricture (02/25/2017), Cystoscopic removal of ureteric stent (07/11/2011), Cystoscopic insertion of ureteric stent (06/14/2011), bladder lift, Dilatation and curettage, Essure., Hx of cholecystectomy......, Hysterectomy, Lithotripsy. Discharge Vitals Heart Rate (Peripheral) 90 Respiratory Rate 16 Blood Pressure 138/88 Height 166.5 cm Height 66 in Weight 99.5 kg Weight 218.9 lb BMI 35.89 What to do next You Need to Complete the Following Celiac Disease Comprehensive, Blood, Routine collect, 07/24/22, Order for future visit, Lab Collect, Bloating, Print Label By Order Location Medications What How Much When Instructions Unchanged losartan 25 Milligram By Mouth Every day Contact prescribing physician if questions or concerns Unchanged naltrexone (naltrexone 50 mg oral tablet) Contact prescribing physician if questions or concerns Unchanged naltrexone (naltrexone 50 mg oral tablet) Contact prescribing physician if questions or concerns Unchanged Non-Formulary Medication (Misc Medication) Contact prescribing physician if questions or concerns Unchanged pantoprazole (Pantoprazole [address] Tab) TAKE 1 TABLET BY MOUTH EVERY DAY Contact prescribing physician if questions or concerns Unchanged rimegepant (Nurtec ODT 75 mg oral tablet, disintegrating) DISSOLVE 1 TABLET ON THE TONGUE ONCE DAILY Contact prescribing physician if questions or concerns Unchanged sumatriptan (Imitrex 100 mg Tab) 1 Tablets By Mouth Every day as needed for for migraine headache may repeat dose after 2 hours up to a maximum of 200 mg in 24 hours. Max 5 doses per week Contact prescribing physician if questions or concerns Medications and Immunizations Administered Not Given SARS-CoV-2 mRNA (tozinameran 5y-11y) vac, Postpone due to refusal Allergies ibuprofen (Stomach upset) Problems Ongoing - Any problem that you are currently receiving treatment for. Bloating BMI 40.0-44.9, adult Chronic neck pain Dry heaves Dysphagia Globus syndrome Hx of cholecystectomy Hx of migraine headaches Morbid obesity Nausea Nocturia Pulmonary embolism Seen by pain management service Straining to void Stress incontinence Stricture of female urethra Urinary urgency Urine frequency Historical - Any problem that you are no longer receiving treatment for. H/O: pulmonary embolus HTN (hypertension) Kidney stones Normal [facility] Auth for Release of Medical Recordson 07-18-2022 Auth for Release of Medical Records [id number] [facility] Complete Blood Count Auto Di ffon 12-27-2021 Basophils (Bld) [#/Vol] 0.1 10*3/uL Normal 0.0-0.2 [facility] Comment on above: Order Comment: Reaso n for Exam Benign essential hypertension Result Comment: PERF ORMED BY: [address] [place] [address] PATHOLOGIST TILE SORTER JIANLAN SUN M.D. Performed By: #### C BC, CMP, LIPID, TSH3 wRFLX #### [facility] [address] [place] [address] [place] Basophils/100 WBC (Bld) 0.9 % Normal . [facility] Comment on above: Order Comment: Reaso n for Exam Benign essential hypertension Performed By: #### C BC, CMP, LIPID, TSH3 wRFLX #### [facility] [address] [place] [address] [place] Eosinophils (Bld) [#/Vol] 0.1 10*3/uL Normal 0.0-0.45 [facility] Comment on above: Order Comment: Reaso n for Exam Benign essential hypertension Performed By: #### C BC, CMP, LIPID, TSH3 wRFLX #### [address] Eosinophils/100 WBC (Bld) 1.7 % Normal . [facility] Comment on above: Order Comment: Reaso n for Exam Benign essential hypertension Performed By: #### C BC, CMP, LIPID, TSH3 wRFLX #### [address] Erythrocyte distribution width (RBC) [Ratio] 14.2 % Normal 11.9-15.3 [facility] Comment on above: Order Comment: Reaso n for Exam Benign essential hypertension Performed By: #### C BC, CMP, LIPID, TSH3 wRFLX #### [facility] [address] [place] [address] Hematocrit (Bld) [Volume fraction] 39.3 % Normal 34.0-46.4 [facility] Comment on above: Order Comment: Reaso n for Exam Benign essential hypertension Performed By: #### C BC, CMP, LIPID, TSH3 wRFLX #### [facility] [address] [place] [address] [place] Hemoglobin (Bld) [Mass/Vol] 12.9 g/dL Normal 11.8-15.4 [facility] Comment on above: Order Comment: Reaso n for Exam Benign essential hypertension Performed By: #### C BC, CMP, LIPID, TSH3 wRFLX #### [address] Lymphocytes (Bld) [#/Vol] 1.9 10*3/uL Normal 1.00-4.8 [facility] Comment on above: Order Comment: Reaso n for Exam Benign essential hypertension Performed By: #### C BC, CMP, LIPID, TSH3 wRFLX #### [address] Lymphocytes/100 WBC (Bld) 25.6 % Normal . [facility] Comment on above: Order Comment: Reaso n for Exam Benign essential hypertension Performed By: #### C BC, CMP, LIPID, TSH3 wRFLX #### [address] MCH (RBC) [Entitic mass] 27.5 pg Normal 24.7-34.3 [facility] Comment on above: Order Comment: Reaso n for Exam Benign essential hypertension Performed By: #### C BC, CMP, LIPID, TSH3 wRFLX #### [address] MCV (RBC) [Entitic vol] 83.7 fL Normal 80-100 [facility] Comment on above: Order Comment: Reaso n for Exam Benign essential hypertension Performed By: #### C BC, CMP, LIPID, TSH3 wRFLX #### [address] Mean Corpuscular HGB Conc 32.8 g/dL Normal 32.0-35.0 [facility] Comment on above: Order Comment: Reaso n for Exam Benign essential hypertension Performed By: #### C BC, CMP, LIPID, TSH3 wRFLX #### [place] [address] [place] Monocytes (Bld) [#/Vol] 0.7 10*3/uL Normal 0.0-0.8 [facility] Comment on above: Order Comment: Reaso n for Exam Benign essential hypertension Performed By: #### C BC, CMP, LIPID, TSH3 wRFLX #### [place] [address] [place] Monocytes/100 WBC (Bld) 9.5 % Normal . [facility] Comment on above: Order Comment: Reaso n for Exam Benign essential hypertension Performed By: #### C BC, CMP, LIPID, TSH3 wRFLX #### [facility] [address] [place] [id number] [place] Neutrophils (Bld) [#/Vol] 4.5 10*3/uL Normal 1.8-7.7 [facility] Comment on above: Order Comment: Reaso n for Exam Benign essential hypertension Performed By: #### C BC, CMP, LIPID, TSH3 wRFLX #### [facility] [address] [place] [address] [place] Neutrophils/100 WBC (Bld) 62.3 % Normal . [facility] Comment on above: Order Comment: Reaso n for Exam Benign essential hypertension Performed By: #### C BC, CMP, LIPID, TSH3 wRFLX #### [facility] [address] [place] [id number] [place] Nucleated RBC/100 WBC (Bld) [Ratio] 0.1 % Normal 0-0.5 [facility] Comment on above: Order Comment: Reaso n for Exam Benign essential hypertension Performed By: #### C BC, CMP, LIPID, TSH3 wRFLX #### [facility] [address] [place] [id number] [place] Platelet mean volume (Bld) [Entitic vol] 10.6 fL Normal 6.3-10.7 [facility] Comment on above: Order Comment: Reaso n for Exam Benign essential hypertension Performed By: #### C BC, CMP, LIPID, TSH3 wRFLX #### [facility] [address] [place] [address] [place] Platelets (Bld) [#/Vol] 220 10*3/uL Normal 150-450 [facility] Comment on above: Order Comment: Reaso n for Exam Benign essential hypertension Performed By: #### C BC, CMP, LIPID, TSH3 wRFLX #### [facility] [address] [place] [id number] [place] RBC (Bld) [#/Vol] 4.70 10*6/uL Normal 3.60-5.00 [facility] Comment on above: Order Comment: Reaso n for Exam Benign essential hypertension Performed By: #### C BC, CMP, LIPID, TSH3 wRFLX #### [facility] [address] [place] [address] [facility] WBC (Bld) [#/Vol] 7.3 10*3/uL Normal 4.5-11.0 [facility] Comment on above: Order Comment: Reaso n for Exam Benign essential hypertension Performed By: #### C BC, CMP, LIPID, TSH3 wRFLX #### [facility] [address] [place] [address] [facility] Comprehensive Metabolic Pane yeyo 12-27-2021 Albumin [Mass/Vol] 3.7 g/dL Normal 3.2-5.5 [facility] Comment on above: Order Comment: Reaso n for Exam Benign essential hypertension Performed By: #### C BC, CMP, LIPID, TSH3 wRFLX #### [facility] [address] [place], [place] [id number] [facility] Albumin/Globulin [Mass ratio] 1.1 {ratio} Normal [facility] Comment on above: Order Comment: Reaso n for Exam Benign essential hypertension Performed By: #### C BC, CMP, LIPID, TSH3 wRFLX #### [facility] [address] [place] [address] [place] ALP [Catalytic activity/Vol] 93 U/L High 32-92 [facility] Comment on above: Order Comment: Reaso n for Exam Benign essential hypertension Performed By: #### C BC, CMP, LIPID, TSH3 wRFLX #### [facility] [address] [place] [address] [place] ALT [Catalytic activity/Vol] 21 U/L Normal 10-60 [facility] Comment on above: Order Comment: Reaso n for Exam Benign essential hypertension Performed By: #### C BC, CMP, LIPID, TSH3 wRFLX #### [facility] [address] [place] [address] [place] AST [Catalytic activity/Vol] 25 U/L Normal 10-42 [facility] Comment on above: Order Comment: Reaso n for Exam Benign essential hypertension Performed By: #### C BC, CMP, LIPID, TSH3 wRFLX #### [facility] [address] Bilirubin [Mass/Vol] 0.4 mg/dL Normal 0.3-1.2 [facility] Comment on above: Order Comment: Reaso n for Exam Benign essential hypertension Performed By: #### C BC, CMP, LIPID, TSH3 wRFLX #### [facility] [address] Calcium [Mass/Vol] 9.3 mg/dL Normal 8.2-10.2 [facility] Comment on above: Order Comment: Reaso n for Exam Benign essential hypertension Performed By: #### C BC, CMP, LIPID, TSH3 wRFLX #### [facility] [address] Chloride [Moles/Vol] 104 mmol/L Normal 95-114 [facility] Comment on above: Order Comment: Reaso n for Exam Benign essential hypertension Performed By: #### C BC, CMP, LIPID, TSH3 wRFLX #### [facility] [address] [place] [address] [place] CO2 [Moles/Vol] 25.8 mmol/L Normal 22.0-30.0 [facility] Comment on above: Order Comment: Reaso n for Exam Benign essential hypertension Performed By: #### C BC, CMP, LIPID, TSH3 wRFLX #### [facility] [address] [place] [address] [place] Creatinine [Mass/Vol] 0.86 mg/dL Normal 0.44-1.03 [facility] Comment on above: Order Comment: Reaso n for Exam Benign essential hypertension Performed By: #### C BC, CMP, LIPID, TSH3 wRFLX #### [facility] [address] [place] [address] [place] Estimated GFR ( Radha > 60 Normal [facility] Comment on above: Order Comment: Reaso n for Exam Benign essential hypertension Result Comment: GFR estimated reference range: According to KDOQI guidelines, <60 ml/min/1.73m2 is sufficient to diagnose a patient with chronic kidney disease. Performed By: #### C BC, CMP, LIPID, TSH3 wRFLX #### [facility] [address] Estimated GFR (Non- Am > 60 Normal [facility] Comment on above: Order Comment: Reaso n for Exam Benign essential hypertension Performed By: #### C BC, CMP, LIPID, TSH3 wRFLX #### [facility] [address] Globulin (S) [Mass/Vol] 3.3 g/dL [facility] Comment on above: Order Comment: Reaso n for Exam Benign essential hypertension Performed By: #### C BC, CMP, LIPID, TSH3 wRFLX #### [address] Glucose [Mass/Vol] 85 mg/dL Normal 70-100 [facility] Comment on above: Order Comment: Reaso n for Exam Benign essential hypertension Result Comment: [place] Glucose Reference Range is dependent on time and content of last meal. Glucose of more than 200 mg/dL in a nonstressed, ambulatory subject supports the diagnosis of Diabetes Mellitus. ADA recommended reference range Performed By: #### C BC, CMP, LIPID, TSH3 wRFLX #### [address] Potassium [Moles/Vol] 4.4 mmol/L Normal 3.5-5.1 [facility] Comment on above: Order Comment: Reaso n for Exam Benign essential hypertension Performed By: #### C BC, CMP, LIPID, TSH3 wRFLX #### [address] Protein [Mass/Vol] 7.0 g/dL Normal 6.1-7.9 [facility] Comment on above: Order Comment: Reaso n for Exam Benign essential hypertension Performed By: #### C BC, CMP, LIPID, TSH3 wRFLX #### [address] Sodium [Moles/Vol] 138 mmol/L Normal 136-146 [facility] Comment on above: Order Comment: Reaso n for Exam Benign essential hypertension Performed By: #### C BC, CMP, LIPID, TSH3 wRFLX #### [facility] [address] Urea nitrogen [Mass/Vol] 14 mg/dL Normal 9-23 [facility] Comment on above: Order Comment: Reaso n for Exam Benign essential hypertension Performed By: #### C BC, CMP, LIPID, TSH3 wRFLX #### [facility] [address] Lipid Panelon 12-27-2021 Cholesterol [Mass/Vol] 193 mg/dL Normal 140-200 [facility] Comment on above: Order Comment: Reaso n for Exam Benign essential hypertension Result Comment: Chol less than 200 mg/dl low risk Chol 201-239 mg/dl borderline risk Chol 240 mg/dl and greater high risk Performed By: #### C BC, CMP, LIPID, TSH3 wRFLX #### [facility] [address] [place] [address] Cholesterol in HDL [Mass/Vol] 45 mg/dL Normal 35-85 [facility] Comment on above: Order Comment: Reaso n for Exam Benign essential hypertension Result Comment: HDL CHOL ATP-III CLASSIFICATION Cardiovascular Risk HDL > or equal to 60 mg/dL LOW HDL < 40 mg/dL HIGH Performed By: #### C BC, CMP, LIPID, TSH3 wRFLX #### [facility] [address] Cholesterol.total/Chol esterol in HDL [Mass ratio] 4.3 {ratio} Normal <5.0 [facility] Comment on above: Order Comment: Reaso n for Exam Benign essential hypertension Performed By: #### C BC, CMP, LIPID, TSH3 wRFLX #### [facility] [address] [place] [id number] [facility] LDL Cholesterol,Calculated 87 mg/dL Normal 0-100 [facility] Comment on above: Order Comment: Reaso n for Exam Benign essential hypertension Result Comment: LDL ATP III CLASSIFICATION LDL less than 100 mg/dL Optimal LDL 100-129 mg/dL Near or above optimal LDL 130-159 mg/dL Borderline high LDL 160-189 mg/dL High LDL greater than 189 mg/dL Very high Performed By: #### C BC, CMP, LIPID, TSH3 wRFLX #### [facility] [address] [place] [address] Triglyceride w/Reflex 303 mg/dL High 35-149 [facility] Comment on above: Order Comment: Reaso n for Exam Benign essential hypertension Result Comment: TRIG ATP III CLASSIFICATION TRIG less than 150 mg/dL Normal TRIG 150-199 mg/dL Borderline high TRIG 200-500 mg/dL High TRIG greater than 500 mg/dL Very high Standard traceable to the Center for Disease Conrtrol and Prevention (CDC) test method. Performed By: #### C BC, CMP, LIPID, TSH3 wRFLX #### [address] VLDL CHOLESTEROL 60 mg/dL Normal [facility] Comment on above: Order Comment: Reaso n for Exam Benign essential hypertension Performed By: #### C BC, CMP, LIPID, TSH3 wRFLX #### [facility] [address] [place] [address] Thyroid Stim Hormone w/Rflxo n 12-27-2021 Thyroid Stim Hormone w/Rflx 1.60 u[iU]/mL Normal 0.45-5.33 [facility] Comment on above: Order Comment: Reaso n for Exam Benign essential hypertension Result Comment: PERF ORMED BY: [place] [address] PATHOLOGIST TILE SORTER YURI ATKINSON M.D. Performed By: #### C BC, CMP, LIPID, TSH3 wRFLX #### [facility] [address] [place] [address] Covid-19 PCR (CVDTBH)on 03-08 SARS-CoV-2 (COVID-19) RNA BERTRAND+probe Ql (Unsp spec) Not detected Normal NOT DETECTED [facility] Comment on above: Result Comment: This test is not yet approved or cleared by the [place] FDA. When there are no FDA-approved or cleared tests available, and other criteria are met, FDA can make tests available under an emergency access mechanism called an Emergency Use Authorization (EUA). The EUA for this test is supported by the Support Services Tech of Health and Human Service's (HHS's) declaration that circumstances exist to justify the emergency use of in vitro diagnostics for the detection and/or diagnosis of the virus that causes COVID-19. This EUA will remain in effect (meaning this test can be used) for the duration of the COVID-19 declaration justifying emergency of IVDs, unless it is terminated or revoked by FDA (after which the test may no longer be used). When diagnostic testing is negative, the possibility of a false negative should be considered in the context of a patient's recent exposures and the presence of clinical signs and symptoms consistent with SARS-CoV-2. Performed By: #### T SH, LIPID, T7, CMP #### [facility] [address] [place], [place] [address] Flavia Tristan MRI LSPINE WO CONon 02-15-20 21 MRI LSPINE WO CON EXAMINATION: MRI LSP INE WO CON HISTORY: Lumbar radiculopathy COMPARISON: No relevant comparison available. TECHNIQUE: A variety of imaging planes and parameters were utilized for visualization of suspected pathology. FINDINGS: For the purposes of numbering, sagittal T2 image # 8 extends from the T11 vertebral body superiorly to the S2-3 level inferiorly. PARASPINAL AREA: Normal with no visible mass. BONES: No fracture, pars defect, or osseous lesion. CORD/CAUDA EQUINA: Normal caliber, contour, and signal intensity. DISC LEVELS: 12-L1: No significant disc/facet abnormality, spinal stenosis, or foraminal stenosis. L1-L2: No significant disc/facet abnormality, spinal stenosis, or foraminal stenosis. L2-L3: Early degenerative disc disease is present without focal protrusion or neural impingement. L3-L4: Early degenerative disc disease is present without focal protrusion or neural impingement. L4-L5: Early degenerative disc disease is present without focal protrusion or neural impingement. L5-S1: Mild/moderate left foramen narrowing secondary to mild degenerative facet arthropathy. IMPRESSION: 1. L5-S1 mild-moderate left foramen narrowing secondary to degenerative facet arthropathy. Electronically authenticated by: WILLIAM SHARMA Date: 2021-02-14 14:22 Normal [facility] CTA CHEST WO W CONon 2 021 CTA CHEST WO W CON EXAMINATION: CTA KD ST WO W CON HISTORY: H/O: pulmonary embolus COMPARISON: No relevant comparison available. TECHNIQUE: Multi-planar CT images were created with IV contrast. Axial, Coronal, and Sagittal images. Dose reduction techniques were achieved by using automated exposure control and/or adjustment of mA and/or kV according to patient size and/or use of iterative reconstruction technique. 3-D reconstruction was performed on a separate workstation. FINDINGS: VASCULATURE: No pulmonary embolism or abnormal opacity. LUNGS: Mild haziness within the posterior dependent lung bases favoring atelectasis. PLEURA: No mass, effusion, or pneumothorax. YAMILEX: No mass or adenopathy. MEDIASTINUM: No mass or adenopathy. CARDIAC: No enlargement, pericardial effusion, or pericardial thickening. AORTA: No aneurysm or dissection. CHEST WALL: No mass or axillary adenopathy. BONES: No bone lesion or fracture. LIMITED ABDOMEN: No suspicious findings. Limited images of the upper abdomen. OTHER: Negative. IMPRESSION: 1. No pulmonary embolus. 2. Trace amount of bibasilar atelectasis versus infiltrates. Atelectasis is favored. Electronically authenticated by: WILLIAM SHARMA Date: 2020-12-28 10:57 Normal [facility] MG MAMM SCREEN 3D EAGLE CADon 12-28-2020 MG MAMM SCREEN 3D EAGLE CAD Patient: NATACHA BENITEZ Exam Date: 12/28/2020 : 1980 Gender:F Ordering : TARAH STALEY [employer] Admission #: [id number] Family : Order #: [id number] CLICK HERE TO VIEW EXAM RADIOLOGY REPORT PROCEDURE: MAMMOGRAM SCREENING 3D BILATERAL CAD COMPARISON: None. INDICATIONS: Screening mammography Calculator Name NCI Breast Cancer Risk Assessment Tool 5 Year Breast Cancer Risk 0.40% Lifetime Breast Cancer Risk 7.30% Personal Breast Cancer No Personal Ovarian Cancer No Treatments None Family Cancers Grandmother-maternal with breast cancer at age 65. LOCATION: [facility] BREAST COMPOSITION: Heterogeneously dense,which may obscure small masses. FINDINGS: DIAGNOSTIC CATEGORY 1--NEGATIVE ASSESSMENT. RIGHT BREAST: No significant suspicious finding. LEFT BREAST: No significant suspicious finding. RECOMMENDATIONS: ROUTINE MAMMOGRAM AND CLINICAL EVALUATION IN 12 MONTHS. PLEASE NOTE: A NORMAL MAMMOGRAM DOES NOT EXCLUDE THE POSSIBILITY OF BREAST CANCER. A CLINICALLY SUSPICIOUS PALPABLE LUMP SHOULD BE BIOPSIED. Dictated by: William Sharma M.D. on 12/28/2020 at 15:38 Approved by: William Sharma M.D. on 12/28/2020 at 15:40 Normal [facility] INSULINon 12-16-2020 Insulin 9.3 uIU/mL Normal 2.6-24.9 [facility] Comment on above: Performed By: #### I NSULIN #### [facility] [address] [place], [place] [address] Flavia Azalea CBC AUTO DIFFon 12-15-2020 BASO # 0.1 103/ul Normal 0.0-0.1 [facility] Comment on above: Performed By: #### C BC #### [facility] [address] [place] [address] Flavia Azalea Basophils/100 WBC (Bld) 0.8 % Normal 0.2-2.0 [facility] Comment on above: Performed By: #### C BC #### [facility] [address] [place] [address] Flavia Azalea EO # 0.3 103/ul Normal 0.0-0.7 [facility] Comment on above: Performed By: #### C BC #### [facility] [address] [place], [place] [address] Flavia Azalea Eosinophils/100 WBC (Bld) 4.2 % Normal 0.9-7.0 [facility] Comment on above: Performed By: #### C BC #### [facility] [address] [place], [place] [address] Flavia Azalea Erythrocyte distribution width (RBC) [Ratio] 12.7 % Normal 11.0-15.0 [facility] Comment on above: Performed By: #### C BC #### [facility] [address] [place], [place] [address] Flavia Azalea Hematocrit (Bld) [Volume fraction] 37.9 % Normal 36.0-48.0 [facility] Comment on above: Performed By: #### C BC #### [facility] [address] [place], [place] [address] Flavia Azalea Hemoglobin (Bld) [Mass/Vol] 12.4 g/dL Normal 12.0-16.0 [facility] Comment on above: Performed By: #### C BC #### [facility] [address] [place] [address] Flavia Azalea IG # 0.02 10e3/ul Normal 0.00-0.03 [facility] Comment on above: Performed By: #### C BC #### [facility] [address] [place] [address] Flavia Azalea IG % 0.3 % Normal 0.0-0.5 [facility] Comment on above: Performed By: #### C BC #### [facility] [address] [place] [address] Flavia Azalea LYMPH # 2.2 103/ul Normal 1.2-3.8 [facility] Comment on above: Performed By: #### C BC #### [facility] [address] [place] [address] Flavia Azalea Lymphocytes/100 WBC (Bld) 35.8 % Normal 20.5-60.0 [facility] Comment on above: Performed By: #### C BC #### [facility] [address] [place] [address] Flavia Azalea MANUAL DIFF REQ NO Normal [facility] Comment on above: Performed By: #### C BC #### [facility] [address] [place] [address] Flavia Azalea MCH (RBC) [Entitic mass] 28.3 pg Normal 26.7-34.0 [facility] Comment on above: Performed By: #### C BC #### [facility] [address] [place] [address] Flavia Azalea MCHC (RBC) [Mass/Vol] 32.7 g/dL Normal 29.9-35.2 [facility] Comment on above: Performed By: #### C BC #### [facility] [address] [place] [address] Flavia Azalea MCV (RBC) [Entitic vol] 86.5 fL Normal 81.0-99.0 [facility] Comment on above: Performed By: #### C BC #### [facility] [address] [place], [place] [id number] Flavia Tristan MONO # 0.5 103/ul Normal 0.3-0.8 [facility] Comment on above: Performed By: #### C BC #### [facility] [address] [place] [address] Flavia Tristan Monocytes/100 WBC (Bld) 7.7 % Normal 1.7-12.0 [facility] Comment on above: Performed By: #### C BC #### [facility] [address] [place] [address] Flavia Tristan NEUT # 3.2 103/ul Normal 1.4-6.5 [facility] Comment on above: Performed By: #### C BC #### [facility] [address] [place] [address] Flavia Tristan Neutrophils/100 WBC (Bld) 51.2 % Normal 43.0-75.0 [facility] Comment on above: Performed By: #### C BC #### [facility] [address] [place] [address] Flavia Tristan Platelet mean volume (Bld) [Entitic vol] 11.0 fL Normal 9.5-13.5 [facility] Comment on above: Performed By: #### C BC #### [facility] [address] [place] [address] Flavia Azalea PLT 189 103/ul Normal 150-450 [facility] Comment on above: Performed By: #### C BC #### [facility] [address] [place] [address] Flavia Azalea RBC 4.38 106/ul Normal 4.20-5.40 [facility] Comment on above: Performed By: #### C BC #### [facility] [address] [place] [address] Flavia Azalea WBC 6.2 103/ul Normal 4.0-11.0 [facility] Comment on above: Performed By: #### C BC #### [facility] [address] [address] Flavia Tristan D-DIMERon 12-15-2020 D-DIMER 0.50 mg/L FEU Normal 0.19-0.50 [facility] Comment on above: Performed By: #### T SH, LIPID, T7, CMP #### [facility] [address] [address] Flaviarupa Tristan D-DIMER COMMENTS SEE BELOW Normal [facility] Comment on above: Result Comment: Incr eases in D-Dimer concentration observed with thromboembolic events can be variable due to localization, size, and age of the thrombus. Therefore, a thromboembolic event cannot be diagnosed with certainty on the basis of the reference range. D-Dimers may also be elevated for a variety of disorders including: advanced age, , coronary disease, cancer, liver disease, infection, inflammation, hematoma, DIC, trauma, post-surgery, diabetes, thrombolytic or anticoagulant therapy, stress, and generalized hospitalization. Performed By: #### T SH, LIPID, T7, CMP #### [facility] [address] [address] Flavia Tristan FREE THYROXINE INDEX T7on FTI 1.90 Normal [facility] Comment on above: Performed By: #### T SH, LIPID, T7, CMP #### [facility] [address] [address] Flavia Tristan T3U 34.0 % Normal 23.5-40.5 [facility] Comment on above: Performed By: #### T SH, LIPID, T7, CMP #### [facility] [address] [address] Flavia Tristan T4 [Mass/Vol] 5.60 ug/dL Normal 5.53-11.00 [facility] Comment on above: Performed By: #### T SH, LIPID, T7, CMP #### [facility] [address] [address] Flavia Tristan GLYCOHEMOGLOBIN A1Con 2020 ADA RECOMMENDATION ADA THERAPEUTIC TARG ET 6.0 - 7.0 ACTION SUGGESTED > 7.0 Normal [facility] Comment on above: Performed By: #### T SH, LIPID, T7, CMP #### [facility] [address] [place] [address] Flaviarupa Tristan Glucose [Mass/Vol] 103 mg/dL Normal [facility] Comment on above: Performed By: #### T SH, LIPID, T7, CMP #### [facility] [address] [place] [address] Flavia Tristan HbA1c (Bld) [Mass fraction] 5.2 % Normal <=6.0 [facility] Comment on above: Performed By: #### T SH, LIPID, T7, CMP #### [facility] [address] [place] [address] Flavia Tristan IRONon 12-15-2020 Iron [Mass/Vol] 40.0 ug/dL Normal 37.0-170.0 [facility] Comment on above: Performed By: #### I YUE #### [facility] [address] [place] [address] Flavia Tristan LIPID PROFILEon 12-15-2020 CHOL-HDL RATIO NORM SEE BELOW Normal [facility] Comment on above: Result Comment: 3.3 - 4.4 LOW RISK 4.4 - 7.1 AVERAGE RISK 7.1 - 11.0 MODERATE RISK >11.0 HIGH RISK Performed By: #### T SH, LIPID, T7, CMP #### [facility] [address] [place] [address] Flavia Azalea Cholesterol [Mass/Vol] 171 mg/dL Normal <=200 [facility] Comment on above: Performed By: #### T SH, LIPID, T7, CMP #### [facility] [address] [place] [address] Flavia Azalea Cholesterol in HDL [Mass/Vol] 56 mg/dL Normal [facility] Comment on above: Performed By: #### T SH, LIPID, T7, CMP #### [facility] [address] [place] [address] Flavia Azalea Cholesterol in LDL [Mass/Vol] 94.2 mg/dL Normal [facility] Comment on above: Performed By: #### T SH, LIPID, T7, CMP #### [facility] [address] [id number] Flavia Azalea Cholesterol.total/Chol esterol in HDL [Mass ratio] 3.1 {ratio} Normal [facility] Comment on above: Performed By: #### T SH, LIPID, T7, CMP #### [facility] [address] [id number] Flavia Azalea HDL NORMAL > or = 60 mg/dl - LO W CARDIOVASCULAR RISK <40 mg/dl - HIGH CARDIOVASCULAR RISK Normal [facility] Comment on above: Performed By: #### T SH, LIPID, T7, CMP #### [facility] [address] [address] Flavia Azalea LDL CALC NORMAL SEE BELOW Normal [facility] Comment on above: Result Comment: <100 mg/dl OPTIMAL 100 - 129 mg/dl NEAR OR ABOVE OPTIMAL 130 - 159 mg/dl BORDERLINE HIGH 160 - 189 mg/dl HIGH >190 mg/dl VERY HIGH Performed By: #### T SH, LIPID, T7, CMP #### [facility] [address] [address] Flavia Azalea Triglyceride [Mass/Vol] 104 mg/dL Normal <=150 [facility] Comment on above: Performed By: #### T SH, LIPID, T7, CMP #### [facility] [address] [place] [address] Flavia Azalea VLDL CALC 20.8 mg/dL Normal [facility] Comment on above: Performed By: #### T SH, LIPID, T7, CMP #### [facility] [address] [address] Flavia Azalea PROF 14(COMP METB)on 021 Albumin [Mass/Vol] 3.6 g/dL Normal 3.5-5.0 [facility] Comment on above: Performed By: #### T SH, LIPID, T7, CMP #### [facility] [address] [place] [address] Flavia Azalea Albumin/Globulin [Mass ratio] 0.9 {ratio} Normal [facility] Comment on above: Performed By: #### T SH, LIPID, T7, CMP #### [facility] [address] [id number] Flavia Azalea ALP [Catalytic activity/Vol] 74 U/L Normal 38-126 [facility] Comment on above: Performed By: #### T SH, LIPID, T7, CMP #### [facility] [address] [address] Flavia Azalea ALT [Catalytic activity/Vol] 21 U/L Normal 9-52 [facility] Comment on above: Performed By: #### T SH, LIPID, T7, CMP #### [facility] [address] [address] Flavia Azalea Anion gap [Moles/Vol] 9.8 mmol/L Normal [facility] Comment on above: Performed By: #### T SH, LIPID, T7, CMP #### [facility] [address] [address] Flavia Azalea AST [Catalytic activity/Vol] 19 U/L Normal 14-36 [facility] Comment on above: Performed By: #### T SH, LIPID, T7, CMP #### [facility] [address] [address] Flavia Azalea Bilirubin [Mass/Vol] 0.4 mg/dL Normal 0.2-1.3 [facility] Comment on above: Performed By: #### T SH, LIPID, T7, CMP #### [facility] [address] [address] Flavia Azalea Calcium [Mass/Vol] 8.8 mg/dL Normal 8.4-10.2 [facility] Comment on above: Performed By: #### T SH, LIPID, T7, CMP #### [facility] [address] [address] Flavia Azalea Chloride [Moles/Vol] 106 mmol/L Normal 98-107 [facility] Comment on above: Performed By: #### T SH, LIPID, T7, CMP #### [facility] [address] [address] Flavia Azalea CO2 [Moles/Vol] 30.4 mmol/L Critically high 22.0-30.0 [facility] Comment on above: Performed By: #### T SH, LIPID, T7, CMP #### [facility] [address] [address] Flavia Azalea Creatinine [Mass/Vol] 0.99 mg/dL Normal 0.52-1.04 [facility] Comment on above: Performed By: #### T SH, LIPID, T7, CMP #### [facility] [address] [address] Flavia Azalea EGFR-AF URUGUAYAN >60 Normal >=60 [facility] Comment on above: Performed By: #### T SH, LIPID, T7, CMP #### [facility] [address] [address] Flavia Azalea EGFR-NON AF URUGUAYAN >60 Normal >=60 [facility] Comment on above: Performed By: #### T SH, LIPID, T7, CMP #### [facility] [address] [address] Flavia Azalea Globulin (S) [Mass/Vol] 3.9 g/dL Normal [facility] Comment on above: Performed By: #### T SH, LIPID, T7, CMP #### [facility] [address] [address] Flavia Azalea Glucose [Mass/Vol] 86 mg/dL Normal 74-106 [facility] Comment on above: Performed By: #### T SH, LIPID, T7, CMP #### [facility] [address] [address] Flavia Azalea Potassium [Moles/Vol] 4.2 mmol/L Normal 3.4-5.0 [facility] Comment on above: Performed By: #### T SH, LIPID, T7, CMP #### [facility] [address] [address] Flavia Azalea Protein [Mass/Vol] 7.5 g/dL Normal 6.1-8.2 [facility] Comment on above: Performed By: #### T SH, LIPID, T7, CMP #### [facility] [address] [address] Flavia Azalea Sodium [Moles/Vol] 142 mmol/L Normal 137-145 [facility] Comment on above: Performed By: #### T SH, LIPID, T7, CMP #### [facility] [address] [place] [address] Flavia Azalea Urea nitrogen [Mass/Vol] 19.0 mg/dL Critically high 7.0-17.0 [facility] Comment on above: Performed By: #### T SH, LIPID, T7, CMP #### [facility] [address] [place] [address] Flavia Azalea Urea nitrogen/Creatinine [Mass ratio] 19.2 mg/mg Normal [facility] Comment on above: Performed By: #### T SH, LIPID, T7, CMP #### [facility] [address] [place] [address] Flavia Azalea TSHon 12-15-2020 TSH 1.997 uIU/mL Normal 0.470-4.68 0 [facility] Comment on above: Performed By: #### T SH, LIPID, T7, CMP #### [facility] [address] [place] [address] Flavia Azalea TSH RANGE SEE BELOW Normal [facility] Comment on above: Result Comment: <0.3 4 UIU/ml HYPERTHYROID 0.34-5.60 UIU/ml EUTHYROID >5.60 UIU/ml HYPOTHYROID Performed By: #### T SH, LIPID, T7, CMP #### [facility] [address] [place] [address] Flavia Azalea CBC AUTO DIFFon 09-12-2020 BASO # 0.1 103/ul Normal 0.0-0.1 [facility] Comment on above: Performed By: #### T SH, LIPID, T7, CMP #### [facility] [address] [place] [address] Flavia Azalea Basophils/100 WBC (Bld) 0.8 % Normal 0.2-2.0 [facility] Comment on above: Performed By: #### T SH, LIPID, T7, CMP #### [facility] [address] [place] [address] Flavia Azalea EO # 0.3 103/ul Normal 0.0-0.7 [facility] Comment on above: Performed By: #### T SH, LIPID, T7, CMP #### [facility] [address] [place] [address] Flavia Tristan Eosinophils/100 WBC (Bld) 3.7 % Normal 0.9-7.0 [facility] Comment on above: Performed By: #### T SH, LIPID, T7, CMP #### [facility] [address] [place] [address] Flaviarupa Tristan Erythrocyte distribution width (RBC) [Ratio] 12.3 % Normal 11.0-15.0 [facility] Comment on above: Performed By: #### T SH, LIPID, T7, CMP #### [facility] [address] [place] [address] Flavia Tristan Hematocrit (Bld) [Volume fraction] 41.1 % Normal 36.0-48.0 [facility] Comment on above: Performed By: #### T SH, LIPID, T7, CMP #### [facility] [address] [place] [address] Flavia Azalea Hemoglobin (Bld) [Mass/Vol] 13.2 g/dL Normal 12.0-16.0 [facility] Comment on above: Performed By: #### T SH, LIPID, T7, CMP #### [facility] [address] [place] [address] Flavia Azalea IG # 0.02 10e3/ul Normal 0.00-0.03 [facility] Comment on above: Performed By: #### T SH, LIPID, T7, CMP #### [facility] [address] [place] [address] Flavia Azalea IG % 0.2 % Normal 0.0-0.5 [facility] Comment on above: Performed By: #### T SH, LIPID, T7, CMP #### [facility] [address] [place] [address] Flavia Azalea LYMPH # 3.0 103/ul Normal 1.2-3.8 [facility] Comment on above: Performed By: #### T SH, LIPID, T7, CMP #### [facility] [address] [place] [address] Flaviarupa Tristan Lymphocytes/100 WBC (Bld) 35.7 % Normal 20.5-60.0 [facility] Comment on above: Performed By: #### T SH, LIPID, T7, CMP #### [facility] [address] [place] [address] Flaviarupa Tristan MANUAL DIFF REQ NO Normal [facility] Comment on above: Performed By: #### T SH, LIPID, T7, CMP #### [facility] [address] [place] [address] Flaviarupa Tristan MCH (RBC) [Entitic mass] 28.4 pg Normal 26.7-34.0 [facility] Comment on above: Performed By: #### T SH, LIPID, T7, CMP #### [facility] [address] [place] [address] Flaviarupa Tristan MCHC (RBC) [Mass/Vol] 32.1 g/dL Normal 29.9-35.2 [facility] Comment on above: Performed By: #### T SH, LIPID, T7, CMP #### [facility] [address] [place] [address] Flaviarupa Tristan MCV (RBC) [Entitic vol] 88.6 fL Normal 81.0-99.0 [facility] Comment on above: Performed By: #### T SH, LIPID, T7, CMP #### [facility] [address] [place] [address] Flavia Azalea MONO # 0.6 103/ul Normal 0.3-0.8 [facility] Comment on above: Performed By: #### T SH, LIPID, T7, CMP #### [facility] [address] [place] [address] Flaviarupa Tristan Monocytes/100 WBC (Bld) 7.1 % Normal 1.7-12.0 [facility] Comment on above: Performed By: #### T SH, LIPID, T7, CMP #### [facility] [address] [place] [address] Flavia Azalea NEUT # 4.4 103/ul Normal 1.4-6.5 [facility] Comment on above: Performed By: #### T TYLER, LIPID, T7, CMP #### [facility] [address] [place] [address] Flavia Tristan Neutrophils/100 WBC (Bld) 52.5 % Normal 43.0-75.0 [facility] Comment on above: Performed By: #### T TYLER, LIPID, T7, CMP #### [facility] [address] [place] [address] Flavia Tristan Platelet mean volume (Bld) [Entitic vol] 11.1 fL Normal 9.5-13.5 [facility] Comment on above: Performed By: #### T TYLER, LIPID, T7, CMP #### [facility] [address] [place] [address] Flavia Tristan PLT 229 103/ul Normal 150-450 [facility] Comment on above: Performed By: #### T TYLER, LIPID, T7, CMP #### [facility] [address] [place] [address] Flavia Azalea RBC 4.64 106/ul Normal 4.20-5.40 [facility] Comment on above: Performed By: #### T TYLER, LIPID, T7, CMP #### [facility] [address] [place] [address] Flavia Tristan WBC 8.3 103/ul Normal 4.0-11.0 [facility] Comment on above: Performed By: #### T TYLER, LIPID, T7, CMP #### [facility] [address] [place] [address] NECK [address] W CONon [address] W CON EXAMINATION: CT NECK ST W CON HISTORY: Pain in throat COMPARISON: None. TECHNIQUE: CT examination of the soft tissues of the neck following the administration of 100 mL Omnipaque 300 intravenous contrast. Coronal and sagittal reformations were performed. Dose reduction techniques were achieved by using automated exposure control and/or adjustment of mA and/or kV according to patient size and/or use of iterative reconstruction technique. FINDINGS: The visualized intracranial contents appear normal. The visualized intraorbital contents appear normal. The visualized paranasal sinuses are clear. The compliance engineer products spaces, parotid glands and parapharyngeal spaces appear normal. The nasopharynx, oropharynx and hypopharynx appear normal. The oral tongue, the floor the mouth and the submandibular glands appear normal. The thyroid gland and the larynx show no abnormal mass. No adenopathy in the neck. No abnormal fluid collection. The visualized upper lungs are clear. No destructive bony lesions. IMPRESSION: No acute process in the neck. Electronically authenticated by: JONAH SON Date: 2020-09-12 19:57 Normal [facility] MONOon 09-12-2020 Monocytes (Bld) [#/Vol] Negative Normal NEGATIVE [facility] Comment on above: Performed By: #### T SH, LIPID, T7, CMP #### [facility] [address] [id number] Flavia Tristan Creatinineon 11-05-2017 Creatinine 0.88 mg/dL Normal 0.50-1.05 [facility] Comment on above: Performed By: #### 1 [id number] ####[place] [address] [place] [address] eGFR (MDRD) mL/min/{1.73_m2} Normal [facility] Comment on above: Result Comment: Inte rpretation for Chronic Kidney Disease:Stages 1&2 >60 Healthy or potential kidney damage.Mild decrease of GFR.Stage 3 30-59 Moderate decrease of GFR.Stage 4 15-29 Severe decrease of GFR.Stage 5 <15 Kidney failure or on dialysis. Performed By: #### 1 [id number] ####[place] [address] [place] [address] Electrolyte Panelon 11-06-19 18 Anion gap 12 mmol/L Normal 10-20 [facility] Comment on above: Performed By: #### 1 [id number] ####[place] [address] [place] [address] Bicarbonate (HCO3) 26 mmol/L Normal 21-32 [facility] Comment on above: Performed By: #### 1 [id number] ####[place] [address] [place] [address] Chloride 104 mmol/L Normal 98-107 [facility] Comment on above: Performed By: #### 1 [id number] ####[place] [address] [place] [facility] [place] [address] Potassium molar conc 4.4 mmol/L Normal 3.5-5.1 [facility] Comment on above: Performed By: #### 1 [id number] ####[place] [address] [facility] [place] [address] Sodium 138 mmol/L Normal 136-145 [facility] Comment on above: Performed By: #### 1 [id number] ####[place] [address] [facility] [place] [address] Urea Nitrogenon 11-05-2017 Urea nitrogen 19 mg/dL Normal 6-23 [facility] Comment on above: Performed By: #### 1 [id number] ####[place] [address] [place] [address] Encounters Encounter Date Encounter Type Care Provider Facility Start: 01-24-2023 End: 01-24-2023 ambulatory DRY DIP WORKER-C Christ Garcia Work Phone: [facility] Work Phone: Start: 01-24-2023 End: 01-24-2023 Departed Referred DRY DIP WORKER-Elvira Garcia Work Phone: [facility] [place] Work Phone: Start: 12-12-2022 End: 12-12-2022 ambulatory Christ Garcia Facility:[facility] Start: 12-12-2022 End: 12-12-2022 Patient encounter procedure DRY DIP WORKER-Elvira Garcia Work Phone: [facility] Work Phone: Start: 09-19-2022 End: 09-20-2022 ambulatory Corrine Dunn Facility:[facility] Start: 08-20-2022 End: 08-21-2022 ambulatory Bryce LIVINGSTON Facility:[facility] Start: 07-24-2022 End: 07-25-2022 ambulatory [facility] Facility:[facility] Start: 05-20-2022 ambulatory Bryce LIVINGSTON Facility:[facility] Start: 12-27-2021 End: 12-27-2021 ambulatory Christ Garcia Facility:[facility] Start: 03-27-2021 End: 03-27-2021 ambulatory TARAHRACHAEL MOORE Facility:[facility] Start: 02-14-2021 End: 02-15-2021 ambulatory EARNESTINE GARCIA Facility:[facility] Start: 01-11-2021 End: 03-13-2021 ambulatory MIKI CONCEPCION Facility:[facility] Start: 12-28-2020 End: 12-29-2020 ambulatory TARAH MOORE Facility:[facility] Start: 12-20-2020 Encounter for genera l adult medical examination without abnormal findings TARAH MOORE [facility] Start: 12-15-2020 End: 12-16-2020 ambulatory TARAH TERESA Facility:[facility] Start: 12-15-2020 End: 12-16-2020 Encounter for general adult medical examination without abnormal findings TARAH MOORE Facility:[facility] Start: 09-12-2020 End: 09-12-2020 ambulatory [facility] Facility:[facility] Start: 11-05-2017 Ambulatory ESTER SANDERS Facility :[id number] Start: 11-05-2017 Ambulatory Facility:9 [id number] Procedures Date Procedure Procedure Detail Performing Clinician Start: 12-12-2022 Screening mammograph y of bilateral breasts JULIANNA Garcia Work Phone: Payers Date Payer Category Payer Private Health Insurance [id number] 2021 Self-pay [id number] 1980 Unknown [id number] .. [id number] 1980 Unknown [id number] .16.84 [id number] 1980 Unknown [id number] .16.84 [id number] 1980 Unknown [id number] .16.84 [id number] 1980 Unknown [id number] 2.16.84 0.1.995526.3.579.2.593 1980 Unknown [id number] 2.16.84 0.1.371778.3.579.2.593 1980 Unknown [id number] 2.16.84 0.1.493723.3.579.2.593 1980 Unknown [id number] 2.16.8 40.1.497460.3.579.2.727 1980 Unknown [id number] 2.16.8 40.1.478842.3.579.2.727 1980 Unknown [id number] 2.16.8 40.1.892334.3.579.2.727 1980 Unknown [id number] 2.16.8 40.1.781149.3.579.2.727 1980 Unknown [id number] 2.16.8 40.1.763511.3.579.2.727 1959 Unknown [id number] Unknown [id number] Unknown [id number] 2.16.8 40.1.841708.3.579.2.531 Unknown [id number] 2.16.8 [id number] Social History Date Type Detail Facility Tobacco smoking stat [facility] Unknown if ever smoked [facility] Start: 1980 Sex Assigned At Female F [facility] Start: 06-08-2018 [facility] Goals Date Patient Goal Desired Activity /State Evaluation note Note Date & Type Note Facility Evaluation note No assessment information availa ble [facility] Work Phone: Summary Purpose Family History No Family History Records FoundNo Family History Records FoundNo Family History Records FoundNo Family History Records FoundNo Family History Records FoundNo Family History Records Found Advance Directives Advance Directive Response Recorded Date/ Time Advance Directives No March 12:31pm Assessments No Assessments Information Available Chief Complaint and Reason for Visit Chief Complaint Screening Additional Source Comments INFORMATION SOURCE (unrecogn ized section and content) DATE CREATED AUTHOR 12/24/2017 [facility] DATE CREATED AUTHOR AUTHOR'S ORGANIZ ATION 12/25/2017 [facility] DATE CREATED AUTHOR AUTHOR'S ORGANIZ ATION 08/08/2018 [facility] DATE CREATED AUTHOR AUTHOR'S ORGANIZ ATION 03/31/2021 [facility] DATE CREATED AUTHOR AUTHOR'S ORGANIZ ATION 10/12/2022 [facility] DATE CREATED AUTHOR AUTHOR'S ORGANIZ ATION 12/17/2022 [facility] Care Teams (unrecognized sec tion and content) Team Status: Inactive Member Role Status Dates April Rouse APRN DRY DIP WORKER-C Attending Provider Active Team Status: Inactive Member Role Status Dates Christ Garcia , DRY DIP WORKER-C Primary Care Provider, Efraín henderson Provider Active Goals (unrecognized section and content) Goals may be documented in a n alternate section FOR RECORDS PERTAINING TO PATIENTS WHO ARE OR HAVE BEEN ENROLLED IN A CHEMICAL DEPENDENCY/SUBSTANCEABUSE PROGRAM, SOME INFORMATION MAY BE OMITTED. This clinical summary was aggregated from multiple sources. Caution should be exercised in using it in the provision of clinical care. This summary normalizes information from multiple sources, and as a consequence, information in this document may materially change the coding, format and clinical context of patient data. In addition, data may be omitted in some cases. CLINICAL DECISIONS SHOULD BE BASED ON THE PRIMARY CLINICAL RECORDS. [facility] [employer] [facility]. provides no warranty or guarantee of the accuracy or completeness of information in this document.
[2024-06-17 14:25] LABS: Creatine Kinase 55 U/L (26-192); Myoglobin 32 ng/mL (9-82)
== END 2024-06-17 13:46 | disposition home or self-care (01) ==
LOC: LAB 13:45
PROVIDERS: PCP Nurse Practitioner Family; Visit Provider Psychiatry & Neurology Neurology
DX: M79.10 Myalgia, unspecified site (principal)
CPT/HCPCS: 36415; 82550; 83874

== ENCOUNTER 2024-11-25 12:37 | Outpatient (OUT) | payer OTHER, SELFPAY ==
--- OUTSIDE RECORDS SUMMARY | 2024-06-22 11:44 | XMS_ITS ---
Author Name Auto Generated Organization [facility] Care Team Providers Care Reservoir Engineer Name Role Phone IHSAN ROBB Attending Unavailable TEZ, TIMOTEO Bonilla Unavailable IHSAN ROBB Attending Unavailable PROBLEMS No Problem Records Found PROCEDURES No Procedure Records Found RESULTS No Result Records Found ALLERGIES No Allergies Records Found ENCOUNTERS ADMIT/DISCHARGE ACCOUNT NUMBER ADMITTING ENCOUNTER CLASS LOCATION SOURCE 06/22/2024/ 4 [id number] Ambulatory Building:NOM S N NEURO [facility] 06/17/2024/ 4 [id number] Ambulatory Building:BSR NEURO [facility] PAYERS ENCOUNTER GUARANTOR PAYER SUBSCRIBER SOURCE 06/22/2024 NATACHA MCCAUELYB: [id number], [place] [address]Hmx: () Primary Insurance:[employer] SERVICESPolicy Number: [id number] Date:[id number], [place] [address]FA: NATACHA MCCAULEYB: [id number] [address] [address] [facility] 06/17/2024 NATACHA MCCAULEYB: [id number], [place] [address]Maz: () Primary Insurance:[employer] SERVICESPolicy Number: [id number] Date:[id number] [address], [place] [address]JG: NATACHA MORRIS: [id number] [address], [place] [address] [facility] EPIC
--- NOTE | 2024-11-25 12:43 | MM_ITS ---
Patient Name: NATACHA BENITEZ MR#: [id number] : 1980 Exam Date: 11/25/2024 Ordering Doctor: NON-STAFF PHYSICIAN RADIOLOGY REPORT PROCEDURE: MM TOMOSYNTHESIS SCREENING BI COMPARISON: MM TOMOSYNTHESIS SCREENING BI, 12/12/2022. MG MAMM SCREEN 3D [place] CAD, 12/28/2020. INDICATIONS: Screening Calculator Name NCI Breast Cancer Risk Assessment Tool 5 Year Breast Cancer Risk 0.60% Lifetime Breast Cancer Risk 7.10% Personal Breast Cancer No Personal Ovarian Cancer No Treatments None Family Cancers Grandmother-maternal with breast cancer at age ~65. LOCATION: [facility] [place] BREAST COMPOSITION: There are scattered areas of fibroglandular density. FINDINGS: RIGHT BREAST: No significant suspicious finding. LEFT BREAST: There is a focal asymmetry in the left breast 4-5 cm from the nipple measuring 8 mm is in greatest dimension which is new when compared to the prior exam. DIAGNOSTIC CATEGORY 0--INCOMPLETE: NEED ADDITIONAL IMAGING EVALUATION. RECOMMENDATIONS: ADDITIONAL MAMMOGRAPHIC VIEWS REQUIRED: LEFT BREAST - spot compressed views of the left breast and ultrasound if necessary is recommended. PLEASE NOTE: A NORMAL MAMMOGRAM DOES NOT EXCLUDE THE POSSIBILITY OF BREAST CANCER. A CLINICALLY SUSPICIOUS PALPABLE LUMP SHOULD BE BIOPSIED. Dictated by: Tim Tolliver MD on 11/25/2024 at 14:49 Approved by: Tim Tolliver MD on 11/25/2024 at 14:57
== END 2024-11-25 12:38 | disposition home or self-care (01) ==
LOC: MAMMO 12:39
PROVIDERS: PCP Nurse Practitioner Family
DX: Z12.31 Encounter for screening mammogram for malignant neoplasm of breast (principal); Z80.3 Family history of malignant neoplasm of breast; R92.8 Other abnormal and inconclusive findings on diagnostic imaging of breast
CPT/HCPCS: 77063; 77067